=== PATIENT | female | born 1935 | race Caucasian/White ===

== ENCOUNTER 2017-03-05 10:22 | Observation (INO) | payer MEDICARE ==
[2017-03-05] MEDS ORDERED: BENADRYL 50 MG/ML IV ONE (10:26)
[2017-03-05] MEDS ORDERED: Pepcid 20 MG VIAL IV ONE ×2 (10:26→11:04)
[2017-03-05] MEDS ORDERED: Sodium Chloride 0.9% 1000 ML 1,000 ML IV SCH (10:30)
[2017-03-05 10:47] LABS: BASOPHIL % 0.6 % (0.0-0.4); Granulocytes % 64.8 % (36.0-66.0); Lymphocytes % 22.9 % (24.0-44.0); Mean Cell Volume 92.5 fl (78-100); Mean Corpuscular Hemoglobin 30.3 pg (26-32); Mean Platelet Volume 9.9 fl (6-9.5); Monocytes % 8.7 % (0.0-12.0); Platelet Count 180 K/mm3 (150-450); Red Blood Count 5.31 M/mm3 (4.1-5.4); Red Cell Distribution Width 14.2 % (11.5-14.0); White Blood Count 6.2 K/mm3 (4.0-10.5)
--- NOTE | 2017-03-05 10:54 | ERPHSYRPT ---
- History of Present Illness Time Seen by Provider: 03/05/17 10:26 Source: patient Physician History: CC: chest/abd pain Hx: 81 y/o patient of Dr Sarina Oakley. She noted a feeling of pain in lower chest/ upper abdomen around 3AM while resting. She felt her heart racing. It was continuing this AM so she drove herself to the hospital. She had prior appendectomy. She has no hx of heart disease. She does have HTN. No current pain. No N/V/D. She is on a urinary medication for frequency- flomax. Timing/Duration: today Severity: moderate Allergies/Adverse Reactions: amoxicillin [Amoxicillin] Allergy (Verified 02/08/14 09:47) Hx Tetanus, Diphtheria Vaccination/Date Given: No Hx Influenza Vaccination/Date Given: Yes Hx Pneumococcal Vaccination/Date Given: No - Review of Systems Constitutional: Malaise, Weakness, No Fever, No Chills Eyes: No Symptoms Ears, Nose, & Throat: No Symptoms Respiratory: No Cough, No Dyspnea Cardiac: Chest Pain (lower), Palpitations, No Syncope Abdominal/Gastrointestinal: Abdominal Pain (upper), No Nausea, No Vomiting, No Diarrhea Genitourinary Symptoms: No Symptoms Musculoskeletal: Back Pain (chronic unchanged) Skin: No Rash Neurological: No Focal Weakness, No Headache, No Parasthesia All Other Systems: Reviewed and Negative - Past Medical History Pertinent Past Medical History: Yes Cardiac History: Hypertension - Past Surgical History Past Surgical History: Yes Gastrointestinal: Appendectomy Female Surgical History: Hysterectomy Other Surgical History: COLONSCOPY - Social History Smoking Status: Former smoker Exposure to second hand smoke: No Drug Use: none Patient Lives Alone: No - Nursing Vital Signs Nursing Vital Signs: Initial Vital Signs Temperature 97.5 F 03/05/17 10:39 Pulse Rate 77 03/05/17 10:39 Respiratory Rate 16 03/05/17 10:39 Blood Pressure 167/76 03/05/17 10:39 O2 Sat by Pulse Oximetry 95 03/05/17 10:39 Pain Scale Pain Intensity 0 - Physical Exam General Appearance: alert, other (pleasant elderly lady) Eye Exam: PERRL/EOMI Ears, Nose, Throat Exam: normal ENT inspection, moist mucous membranes Neck Exam: normal inspection, non-tender, supple Respiratory Exam: normal breath sounds Cardiovascular Exam: regular rate/rhythm, No murmur Gastrointestinal/Abdomen Exam: soft, tenderness (RUQ and epigastrum with minimal guarding), No distention, No mass Extremity Exam: normal inspection, normal range of motion Neurologic Exam: alert, oriented x 3, cooperative, sensation nml, No motor deficits Skin Exam: warm, dry, No rash - Course Nursing assessment & vital signs reviewed: Yes EKG Interpreted by Me: RATE (78), Sinus Rhythm, NORMAL AXIS, NORMAL INTERVALS ( QTc 447), NORMAL QRS, NORMAL ST-T - Radiology Exams cxr X-ray Interpretation: Reviewed by me (mild CM) - CT Exams abd/pelvis CT Interpretation: Tele-radiologist Report (no acute findings) Ordered Tests: Active Orders 24 hr Category Date Time Status Cath for Specimen-Straight STAT Care 03/05/17 10:27 Active EKG-ER Only STAT Care 03/05/17 10:26 Active EKG-ER Only STAT Care 03/05/17 14:13 Active IV Insertion STAT Care 03/05/17 10:26 Active NPO (ED) STAT Care 03/05/17 10:26 Active ABDOMEN AND PELVIS W/0 CONTRAS [CT] Stat Exams 03/05/17 10:27 Taken CHEST 1 VIEW (PORTABLE) Stat Exams 03/05/17 10:27 Taken CBC W DIFF Stat Lab 03/05/17 10:35 Completed CMP Routine Lab 03/05/17 10:35 Completed LIPASE Routine Lab 03/05/17 10:35 Completed Lactic Acid Stat Lab 03/05/17 10:35 Completed Lactic Acid Stat Lab 03/05/17 12:59 Completed TROPONIN Q3H Lab 03/05/17 10:35 Completed TROPONIN Q3H Lab 03/05/17 13:30 Completed TROPONIN Q3H Lab 03/05/17 16:30 Ordered TROPONIN Q3H Lab 03/05/17 19:30 Ordered TROPONIN Q3H Lab 03/05/17 22:30 Ordered UA W/RFX UR CULTURE Stat Lab 03/05/17 11:00 Completed Medication Summary Generic Name Dose Route Start Last Admin Trade Name Freq PRN Reason Stop Dose Admin Sodium Chloride 1,000 mls @ 50 mls/hr 03/05/17 10:30 03/05/17 11:07 Sodium Chloride 0.9% 1000 Ml IV 04/04/17 10:29 50 mls/hr .Q20H BLANCA Administration Discontinued Medications Generic Name Dose Route Start Last Admin Trade Name Freq PRN Reason Stop Dose Admin Aspirin 324 mg 03/05/17 14:13 03/05/17 14:19 Baby Aspirin 81 Mg Chew PO 03/05/17 14:14 324 mg STAT ONE Administration Diphenhydramine HCl 12.5 mg 03/05/17 10:26 03/05/17 11:07 Benadryl 50 Mg/Ml IV 03/05/17 10:27 12.5 mg STAT ONE Administration Diphenhydramine HCl Confirm 03/05/17 11:04 Benadryl 50 Mg/Ml Administered 03/05/17 11:05 Dose 50 mg .ROUTE .STK-MED ONE Famotidine 20 mg 03/05/17 10:26 03/05/17 11:07 Pepcid 20 Mg Vial IV 03/05/17 10:27 20 mg STAT ONE Administration Famotidine Confirm 03/05/17 11:04 Pepcid 20 Mg Vial Administered 03/05/17 11:05 Dose 20 mg IV .STK-MED ONE Lab/Rad Data: Laboratory Result Diagrams 03/05/17 10:35 03/05/17 10:35 Laboratory Results 03/05/17 03/05/17 03/05/17 Range/Units 13:30 12:59 11:00 WBC (4.0-10.5) K/mm3 RBC (4.1-5.4) M/mm3 Hgb (12.0-16.0) gm/dl Hct (35-47) % MCV (78-100) fl MCH (26-32) pg MCHC (32-36) g/dl RDW (11.5-14.0) % Plt Count (150-450) K/mm3 MPV (6-9.5) fl Gran % (36.0-66.0) % Lymphocytes % (24.0-44.0) % Monocytes % (0.0-12.0) % Eosinophils % (0.00-5.0) % Basophils % (0.0-0.4) % Basophils # (0-0.4) Sodium (136-145) mEq/L Potassium (3.5-5.1) mEq/L Chloride (98-107) mEq/L Carbon Dioxide (21-32) mEq/L Anion Gap (5-15) MEQ/L BUN (9-20) mg/dL Creatinine (0.55-1.30) mg/dl Estimated GFR ML/MIN Glucose (70-110) MG/DL Lactic Acid 0.7 (0.4-2.0) Calcium (8.5-10.1) mg/dL Total Bilirubin (0.2-1.0) mg/dL AST (15-37) U/L ALT (12-78) U/L Alkaline Phosphatase (46-116) U/L Troponin I 0.047 (0.000-0.056) ng/ml Serum Total Protein (6.4-8.2) gm/dL Albumin (3.4-5.0) g/dL Lipase (73-393) U/L Ur Collection Type CATH Urine Color YELLOW (YELLOW) Urine Appearance CLEAR (CLEAR) Urine pH 7.0 (5-6) Ur Specific [place] 1.005 (1.005-1.025) Urine Protein NEGATIVE (Negative) Urine Ketones NEGATIVE (NEGATIVE) Urine Blood NEGATIVE (0-5) Nash/ul Urine Nitrite NEGATIVE (NEGATIVE) Urine Bilirubin NEGATIVE (NEGATIVE) Urine Urobilinogen NORMAL (0-1) mg/dL Ur Leukocyte Esterase NEGATIVE (NEGATIVE) Urine Culture Reflexed NO (NO) Urine Glucose NEGATIVE (NEGATIVE) mg/dL Specimen Received - 11AM 03/05/17 03/05/17 03/05/17 Range/Units 10:35 10:35 10:35 WBC 6.2 (4.0-10.5) K/mm3 RBC 5.31 (4.1-5.4) M/mm3 Hgb 16.1 H (12.0-16.0) gm/dl Hct 49.1 H (35-47) % MCV 92.5 (78-100) fl MCH 30.3 (26-32) pg MCHC 32.8 (32-36) g/dl RDW 14.2 H (11.5-14.0) % Plt Count 180 (150-450) K/mm3 MPV 9.9 H (6-9.5) fl Gran % 64.8 (36.0-66.0) % Lymphocytes % 22.9 L (24.0-44.0) % Monocytes % 8.7 (0.0-12.0) % Eosinophils % 3.0 (0.00-5.0) % Basophils % 0.6 (0.0-0.4) % Basophils # 0.04 (0-0.4) Sodium 141 (136-145) mEq/L Potassium 4.0 (3.5-5.1) mEq/L Chloride 102 (98-107) mEq/L Carbon Dioxide 28.9 (21-32) mEq/L Anion Gap 14.2 (5-15) MEQ/L BUN 18 (9-20) mg/dL Creatinine 1.29 (0.55-1.30) mg/dl Estimated GFR 42 ML/MIN Glucose 114 H (70-110) MG/DL Lactic Acid 2.5 H (0.4-2.0) Calcium 9.7 (8.5-10.1) mg/dL Total Bilirubin 0.60 (0.2-1.0) mg/dL AST 24 (15-37) U/L ALT 22 (12-78) U/L Alkaline Phosphatase 76 (46-116) U/L Troponin I 0.025 (0.000-0.056) ng/ml Serum Total Protein 7.4 (6.4-8.2) gm/dL Albumin 4.5 (3.4-5.0) g/dL Lipase 157 (73-393) U/L Ur Collection Type Urine Color (YELLOW) Urine Appearance (CLEAR) Urine pH (5-6) Ur Specific [place] (1.005-1.025) Urine Protein (Negative) Urine Ketones (NEGATIVE) Urine Blood (0-5) Nash/ul Urine Nitrite (NEGATIVE) Urine Bilirubin (NEGATIVE) Urine Urobilinogen (0-1) mg/dL Ur Leukocyte Esterase (NEGATIVE) Urine Culture Reflexed (NO) Urine Glucose (NEGATIVE) mg/dL Specimen Received - Progress Progress Note: 03/05/17 10:55 She seems to be tender in abd, not chest. Will get CT to rule out AAA or pancreatitis. 03/05/17 13:08 Pt remains pain free here. Labs reassuring. SR on equipment monitor phototypesetting. Will await 3 hour troponin. 03/05/17 14:31 Pt remains pain free. ASA given. Family at bedside and pt and family given test results. Troponin increasing so she should have serial troponin. She has no hx of heart disease. She has never seen a heart doctor in the past. saw Dr Gomes. 03/05/17 15:[address] Sarina Oakley. Will place in chest pain observation for serial troponins to rule out RI. Counseled pt/family regarding: lab results, diagnosis, need for follow-up, rad results - Departure Time of Disposition: 15:05 Departure Disposition: Observation Clinical Impression: Chest pain, Heart palpitations Condition: Fair Critical Care Time: No Referrals: RADHA OAKLEY [Primary Care Provider] -
[2017-03-05] MEDS ORDERED: Sodium Chloride 0.9% 1000 ML 1,000 ML ONE (11:04)
[2017-03-05] MEDS ORDERED: BENADRYL 50 MG/ML ONE (11:04)
[2017-03-05 11:05] LABS: Lactic Acid 2.5 (0.4-2.0)
[2017-03-05 11:27] LABS: ADD URINE CULTURE? NO (NO); Bilirubin NEGATIVE (NEGATIVE); Blood NEGATIVE Ery/ul (0-5); COMPLETE URINE MICROSCOPIC? NO; Collection Type CATH; Glucose NEGATIVE (NEGATIVE); Leukocyte Esterase NEGATIVE (NEGATIVE)
[2017-03-05 11:34] LABS: ALBUMIN 4.5 g/dL (3.4-5.0); ANION GAP 14.2 MEQ/L (5-15); BILIRUBIN,TOTAL 0.6 mg/dL (0.2-1.0); Carbon Dioxide 28.9 mEq/L (21-32); TROPONIN 0.025 ng/ml (0.000-0.056); Total Protein 7.4 gm/dL (6.4-8.2)
[2017-03-05] MEDS ORDERED: BABY ASPIRIN 81 MG CHEW PO ONE (14:13)
[2017-03-05] MEDS ORDERED: TYLENOL 325 MG PO PRN (16:18)
[2017-03-05] MEDS ORDERED: Zofran 4 MG/2 ML VIAL IV PRN (16:18)
[2017-03-05] MEDS ORDERED: MAALOX ES 30 ML UNIT DOSE PO PRN (16:18)
[2017-03-05] MEDS ORDERED: Senokot-S Tablet PO PRN (16:18)
[2017-03-05] MEDS ORDERED: MILK OF MAGNESIA 30 ML PO PRN (16:18)
[2017-03-05] MEDS ORDERED: HYDRODIURIL 25 MG PO SCH ×4 (17:00→22:00)
[2017-03-05] MEDS ORDERED: Flomax 0.4 MG PO SCH ×2 (17:00→22:00)
[2017-03-05] MEDS ORDERED: Protonix 40MG Tablet PO SCH ×2 (17:00→22:00)
[2017-03-05] MEDS ORDERED: DIOVAN PO SCH ×4 (17:00→22:00)
[2017-03-05] MEDS ORDERED: DIOVAN 80 MG ONE ×2 (17:22→23:07)
[2017-03-05] MEDS ORDERED: hydroDIURIL 25 MG ONE ×2 (17:22→23:06)
--- NOTE | 2017-03-05 19:35 | XRAY ---
Indication: Abdomen pain. Multiple contiguous axial images obtained through the abdomen and pelvis without contrast. Comparison: June 03, 2014. Lung bases demonstrates mild bibasilar atelectasis/scarring and right base calcified granuloma. No consolidation or effusion. Heart is not enlarged. Noncontrasted stomach and bowel loops appear nonobstructed. Again descending and sigmoid diverticulosis without diverticulitis. Previous reported appendectomy and hysterectomy. No free fluid/air. Remaining liver, gallbladder, pancreas, spleen, adrenal glands, kidneys, ureters, and bladder appear unremarkable for noncontrast exam. There remains mild aortoiliac calcifications without AAA. Osseous structures intact again with moderate degenerative changes throughout the spine and scoliosis. Stable small fatty umbilical hernia. Impression: 1. Stable colonic diverticulosis and small fatty umbilical hernia. 2. No new or acute intra-abdominal/pelvic abnormalities on this noncontrast exam. Comment: Preliminary interpretation was made by [facility]. No discrepancy. CTDI 19.86
--- NOTE | 2017-03-05 19:37 | XRAY ---
Indication: Chest pressure. Comparison: February 08, 2014. Portable chest again demonstrates minimal bibasilar atelectasis/scarring and right apical calcified granuloma. No focal infiltrate, consolidation, or large effusion. Heart is not enlarged for AP portable technique. Vascularity normal. Bony thorax intact again with mild osteopenia and degenerative changes. Impression: Stable nonacute chest with chronic features.
[2017-03-05] MEDS ORDERED: APRESOLINE 20 MG/ML INJ IV PRN (19:57)
--- NOTE | 2017-03-05 20:03 | PCM.HP ---
History of Present Illness - Chief Complaint Chief Complaint: chest pain Date: 03/05/17 History of Present Illness: is a 81 year old female. with hx of hypertension who at 3am began having chest pressure on the left side and palpitations lasting about 20 mins. It resolved and she was afraid it may have been a heart attack so she drove herself to the ED. She has felt tired since but has otherwise not had any further pain, palitations or nausea. she did take her blood pressure medication last night. - Review of Systems Constitutional: No Fever, No Chills Eyes: No Symptoms Ears, Nose, & Throat: No Symptoms Respiratory: No Cough, No Short Of Breath Cardiac: No Chest Pain, No Edema, No Syncope Abdominal/Gastrointestinal: No Abdominal Pain, No Nausea, No Vomiting, No Diarrhea Genitourinary Symptoms: No Dysuria Musculoskeletal: No Back Pain, No Neck Pain Skin: No Rash Neurological: No Dizziness, No Focal Weakness, No Sensory Changes Psychological: No Symptoms Endocrine: No Symptoms Hematologic/Lymphatic: No Symptoms Immunological/Allergic: No Symptoms Medications & Allergies Home Medications: Home Medication List Naproxen 500 mg [Naprosyn 500 MG] 500 mg PO BID 03/05/17 [History Confirmed 03/05/17] [place]-3 Fatty Acids/Fish Oil [Fish Oil 1,000 mg Capsule] 1 each PO TID 03/05/17 [History Confirmed 03/05/17] Omeprazole 20 MG [Prilosec 20 mg] 20 mg PO DAILY 03/05/17 [History Confirmed ] Simvastatin 10 mg [Zocor 10MG] 10 mg PO DAILY 03/05/17 [History Confirmed ] Tamsulosin HCl 0.4 mg [Flomax 0.4 MG] 0.4 mg PO DAILY 03/05/17 [History Confirmed 03/05/17] Valsartan/Hydrochlorothiazide [Valsartan-Hctz 320-25 mg Tab] 1 tablet PO DAILY 03/05/17 [History Confirmed 03/05/17] Allergies/Adverse Reactions: Allergies Allergy/AdvReac Type Severity Reaction Status Date / Time amoxicillin [Amoxicillin] Allergy Verified 03/05/17 15:23 - Past Medical History Past Medical History: Yes Cardiac History: Hypertension Musculoskelatal History: Other GI Medical History: GERD History: Other Comment: "takes flomax for bladder", sciatica. urinary hesitancy, sees Dr. Allison. da[place] - Past Surgical History Past Surgical History: Yes GI Surgical History: Appendectomy Female Surgical History: Hysterectomy Other Surgical History: COLONSCOPY - Social History Smoking Status: Former smoker Exposure to second hand smoke: No Alcohol: None Drug Use: none - Physical Exam Vital Signs: Vital Signs - 24 hr Temp Pulse Pulse Resp BP Pulse Ox 03/05/17 16:42 98.1 F 59 L 18 216/81 96 03/05/17 15:21 56 L 12 177/73 98 03/05/17 14:03 58 L 18 178/80 99 03/05/17 13:30 68 20 178/80 97 03/05/17 11:15 97.3 F 60 18 146/74 97 03/05/17 10:39 97.5 F 66 77 16 167/76 95 General Appearance: no apparent distress, alert Neurologic Exam: alert, oriented x 3, cooperative, normal mood/affect, nml cerebellar function, nml station & gait, sensation nml, No motor deficits Eye Exam: PERRL/EOMI, eyes nml inspection Ears, Nose, Throat Exam: normal ENT inspection, TMs normal, pharynx normal, moist mucous membranes Neck Exam: normal inspection, non-tender, supple, full range of motion Respiratory Exam: normal breath sounds, lungs clear, No respiratory distress Cardiovascular Exam: regular rate/rhythm, normal heart sounds, normal peripheral pulses Gastrointestinal/Abdomen Exam: soft, normal bowel sounds, No tenderness, No mass Back Exam: normal inspection, normal range of motion, No CVA tenderness, No vertebral tenderness Extremity Exam: normal inspection, normal range of motion, pelvis stable Skin Exam: normal color, warm, dry, No rash Lymphatic Exam: No adenopathy Results - Labs Lab/Micro Results: Lab Results-Last 24 Hours 03/05/17 Range/Units 16:37 Troponin I 0.061 H* (0.000-0.056) ng/ml - Other Procedures and Tests Respiratory Therapy 03/05/17 22:30 EKG ONCE 03/06/17 05:00 EKG ONCE 03/07/17 05:00 EKG ONCE 03/08/17 05:00 EKG ONCE Assessment/Plan (1) Chest pain Current Visit: Yes Status: Acute Assessment & Plan: resolved but troponin seems to be trending up received aspirin in ed EKG is normal and repeat is normal on telemetry with no significant event start metoprolol with the elevated bp continue home losartan/hctz she had a elevation in ED prior to transfer to systolic of 216 it resolved spontaneously to current level of 160 increase statin lovenox for ppx stop naproxen Code(s): R07.9 - CHEST PAIN, UNSPECIFIED (2) Heart palpitations Current Visit: Yes Status: Acute Code(s): R00.2 - PALPITATIONS (3) Hypertension Current Visit: Yes Status: Acute Code(s): I10 - ESSENTIAL (PRIMARY) HYPERTENSION (4) Urinary retention Current Visit: Yes Status: Chronic Assessment & Plan: follows with urology on flomax which has helped it Code(s): R33.9 - RETENTION OF URINE, UNSPECIFIED
[2017-03-05] MEDS ORDERED: Zocor 10MG PO SCH ×2 (22:00)
[2017-03-05] MEDS ORDERED: ENOXAPARIN SODIUM SQ SCH (22:00)
[2017-03-05] MEDS: Lopressor 25MG Tab PO SCH (23:11)
[2017-03-05] MEDS: Pepcid 20 MG VIAL IV SCH (23:11)
[2017-03-06 06:04] LABS: Mean Cell Volume 91.6 fl (78-100); Mean Corpuscular Hemoglobin 29.9 pg (26-32); Mean Platelet Volume 10.1 fl (6-9.5); Platelet Count 245 K/mm3 (150-450); Red Blood Count 4.65 M/mm3 (4.1-5.4); Red Cell Distribution Width 14.2 % (11.5-14.0)
[2017-03-06 06:23] LABS: ANION GAP 12.1 MEQ/L (5-15); Carbon Dioxide 27.9 mEq/L (21-32); Potassium 3.6 mEq/L (3.5-5.1)
[2017-03-06] MEDS: Pepcid 20 MG VIAL IV SCH (08:07)
[2017-03-06] MEDS ORDERED: Lactated Ringers 250 ML IV ONE (09:45)
[2017-03-06] MEDS: FISH OIL 1,000 MG CAPSULE PO SCH ×2 (09:55→13:55)
[2017-03-06] MEDS: Lopressor 25MG Tab PO SCH (09:58)
[2017-03-06] MEDS ORDERED: Ecotrin 325 MG PO SCH (10:00)
[2017-03-06] MEDS ORDERED: HYDROCHLOROTHIAZIDE PO SCH (10:00)
[2017-03-06] MEDS ORDERED: NON-FORMULARY ITEM (Omega-3 Fatty Acids/Fish Oil [Fish Oil 1,000 Mg Capsule] 1 EACH) PO SCH (10:00)
[2017-03-06] MEDS ORDERED: [UNRECOGNIZED DRUG - OTHER] PO SCH (10:00)
[2017-03-06] MEDS ORDERED: VALSARTAN PO SCH (10:00)
--- NOTE | 2017-03-06 14:08 | PCM.DCORD ---
- Discharge Discharge Date: 03/06/17 Disposition: Home, Self-Care Condition: Fair Prescriptions: New Aspirin EC 325 mg [Ecotrin 325 MG] 325 mg PO DAILY #30 tablet.ec Metoprolol Tartrate 25 mg [Lopressor 25MG Tab] 25 mg PO BID #60 tab Continue Tamsulosin HCl 0.4 mg [Flomax 0.4 MG] 0.4 mg PO DAILY Valsartan/Hydrochlorothiazide [Valsartan-Hctz 320-25 mg Tab] 1 tablet PO DAILY Simvastatin 10 mg [Zocor 10MG] 10 mg PO DAILY Omeprazole 20 MG [Prilosec 20 mg] 20 mg PO DAILY [place]-3 Fatty Acids/Fish Oil [Fish Oil 1,000 mg Capsule] 1 each PO TID Discontinued Naproxen 500 mg [Naprosyn 500 MG] 500 mg PO BID Additional Instructions: You will be hearing from our office tomorrow about a referral for follow up with Dr. Gomes as well. If you have not heard from us about an appointment tomorrow please call our office Jessica. Return for any new or worsening chest pain or shortness of breath. Follow up with: RADHA OAKLEY [Primary Care Provider] - Forms: Patient Portal Information
--- NOTE | 2017-03-06 14:26 | PCM.DS ---
Discharge Summary Date of Admission: 03/05/17 16:10 Date of Discharge: 03/06/17 Admitting Physician: RADHA OAKLEY Primary Care Provider: RADHA OAKLEY Allergies Allergies amoxicillin [Amoxicillin] Allergy (Verified 03/05/17 15:23) Hospital Summary - Hospital Course Hospital Course: She was awoken with substernal chest pressure and palpitations radiating to the left and lasting about 20 mins at home at about 0300 the day of presentation. This resolved and she drove her self to ED to have evaluated. She has no previous problems with her heart that she knows of and has been struggling with HTN. her home bp medication was increased about 1 month ago but she just got the higher dose filled about 3 nights ago and has taken 2 nights prior to arrival. She had abdominal tenderness in ED that was significant resulting in ct abd pelvis that was normal. She was given antacidis iv and po. She was given aspirin and she was admitted for chest pain rule out started on ppx lovenox dose. She had normal ekg serially and no recurrence of the chest pain or palpitations. When leaving the ED her bp spiked to 216 systolic but she was asymptomatic and it returned to 160 without intervention. She was continued on her home losartan/hctz and added metoprolol and bp was improved overnight but just prior to her scheduled am dose of metoprolol her bp was taken and sbp was 190/76 and instead of waiting for the metoprolol she was given the prn order for hydralazine and promptly became light headed and flushed and her bp had dropped to 86/41. she was given a 250 mL bolus of LR and her symptoms resolved and bp returned to slightly elevated by 11 am and she was asymptomatic again. The telemetry was unremarkable except some mild asymptomatic bradycardia. Will plan for follow up with cardiology she would like to see Dr. Gomes who took care of her and we will make arrangements for outpatient f/u discussed reasons to return sooner. - Vitals & Intake/Output Vital Signs: Vital Signs Temperature 97.8 F 03/06/17 11:22 Pulse Rate 68 03/06/17 11:22 Respiratory Rate 16 03/06/17 11:22 Blood Pressure 152/65 03/06/17 11:22 O2 Sat by Pulse Oximetry 93 L 03/06/17 11:22 Intake & Output: Intake & Output 03/04/17 03/05/17 03/06/17 03/07/17 11:59 11:59 11:59 11:59 Intake Total 485 240 Balance 485 240 Weight 79.095 kg - Lab Result Diagrams: 03/06/17 05:48 03/06/17 05:48 Lab Results-Last 24 Hrs: Lab Results-Last 24 Hours 03/05/17 03/05/17 03/05/17 Range/Units 16:37 19:42 22:21 WBC (4.0-10.5) K/mm3 RBC (4.1-5.4) M/mm3 Hgb (12.0-16.0) gm/dl Hct (35-47) % MCV (78-100) fl MCH (26-32) pg MCHC (32-36) g/dl RDW (11.5-14.0) % Plt Count (150-450) K/mm3 MPV (6-9.5) fl Sodium (136-145) mEq/L Potassium (3.5-5.1) mEq/L Chloride (98-107) mEq/L Carbon Dioxide (21-32) mEq/L Anion Gap (5-15) MEQ/L BUN (9-20) mg/dL Creatinine (0.55-1.30) mg/dl Estimated GFR ML/MIN Glucose (70-110) MG/DL Calcium (8.5-10.1) mg/dL Troponin I 0.061 H* 0.055 0.076 H* (0.000-0.056) ng/ml Triglycerides (30-200) mg/dL Cholesterol (100-200) mg/dL LDL Cholesterol (5-99) mg/dL HDL Cholesterol (35-60) mg/dL Heart Disease Risk Ratio 03/06/17 03/06/17 03/06/17 Range/Units 05:48 05:48 05:48 WBC 7.0 (4.0-10.5) K/mm3 RBC 4.65 (4.1-5.4) M/mm3 Hgb 13.9 (12.0-16.0) gm/dl Hct 42.6 (35-47) % MCV 91.6 (78-100) fl MCH 29.9 (26-32) pg MCHC 32.6 (32-36) g/dl RDW 14.2 H (11.5-14.0) % Plt Count 245 (150-450) K/mm3 MPV 10.1 H (6-9.5) fl Sodium 137 (136-145) mEq/L Potassium 3.6 (3.5-5.1) mEq/L Chloride 101 (98-107) mEq/L Carbon Dioxide 27.9 (21-32) mEq/L Anion Gap 12.1 (5-15) MEQ/L BUN 16 (9-20) mg/dL Creatinine 1.23 (0.55-1.30) mg/dl Estimated GFR 45 ML/MIN Glucose 96 (70-110) MG/DL Calcium 9.1 (8.5-10.1) mg/dL Troponin I (0.000-0.056) ng/ml Triglycerides 114 (30-200) mg/dL Cholesterol 168 (100-200) mg/dL LDL Cholesterol 87 (5-99) mg/dL HDL Cholesterol 65 H (35-60) mg/dL Heart Disease Risk Ratio 2.6 - Procedures and Test Procedures and Tests throughout Hospitalization: Therapy Orders & Screens 03/05/17 22:30 EKG ONCE Comment: 03/06/17 05:00 EKG ONCE Comment: 03/07/17 05:00 EKG ONCE Comment: 03/08/17 05:00 EKG ONCE Comment: Discharge Exam General Appearance: no apparent distress, alert, obese Neurologic Exam: alert, oriented x 3, cooperative, normal mood/affect, nml cerebellar function, sensation nml, No motor deficits Skin Exam: normal color, warm, dry Eye Exam: PERRL, EOMI, eyes nml inspection Ears, Nose, Throat Exam: normal ENT inspection, pharynx normal, moist mucous membranes Neck Exam: normal inspection, non-tender, supple, full range of motion Respiratory Exam: normal breath sounds, lungs clear, No respiratory distress Cardiovascular Exam: regular rate/rhythm, normal heart sounds Gastrointestinal/Abdomen Exam: soft, No tenderness, No mass Extremity Exam: normal inspection, normal range of motion Back Exam: normal inspection, normal range of motion, No CVA tenderness, No vertebral tenderness Pelvic Exam: deferred Rectal Exam: deferred Final Diagnosis/Problem List - Final Discharge Diagnosis/Problem (1) NSTEMI (non-ST elevated myocardial infarction) Current Visit: Yes Status: Acute Assessment & Plan: very minimal tn elevation may have been secondary to her uncontrolled labile htn she has been asymptomatic since arrival and normal ekg and tele f/u cardiology start metoprolol and aspirin stop naproxen (2) Chest pain Current Visit: Yes Status: Acute (3) Heart palpitations Current Visit: Yes Status: Acute (4) Hypertension Current Visit: Yes Status: Acute (5) Urinary retention Current Visit: Yes Status: Chronic - Discharge Disposition: Home, Self-Care Condition: Fair Prescriptions: New Aspirin EC 325 mg [Ecotrin 325 MG] 325 mg PO DAILY #30 tablet.ec Metoprolol Tartrate 25 mg [Lopressor 25MG Tab] 25 mg PO BID #60 tab Continue Tamsulosin HCl 0.4 mg [Flomax 0.4 MG] 0.4 mg PO DAILY Valsartan/Hydrochlorothiazide [Valsartan-Hctz 320-25 mg Tab] 1 tablet PO DAILY Simvastatin 10 mg [Zocor 10MG] 10 mg PO DAILY Omeprazole 20 MG [Prilosec 20 mg] 20 mg PO DAILY [place]-3 Fatty Acids/Fish Oil [Fish Oil 1,000 mg Capsule] 1 each PO TID Discontinued Naproxen 500 mg [Naprosyn 500 MG] 500 mg PO BID Additional Instructions: You will be hearing from our office tomorrow about a referral for follow up with Dr. Gomes as well. If you have not heard from us about an appointment tomorrow please call our office Tuesday. Return for any new or worsening chest pain or shortness of breath. Follow up with: RADHA OAKLEY [Primary Care Provider] - Forms: Patient Portal Information
[2017-03-06 15:48] VITALS: BP 148/66; PULSE 81; O2SAT 94
[2017-03-06] MEDS ORDERED: ZOCOR 20MG PO SCH (22:00)
== END 2017-03-06 15:45 | disposition home or self-care (01) ==
LOC: ED 10:22 → MED SURG 16:10
PROVIDERS: ADMIT Family Medicine; ATTEND Family Medicine
DX: I21.4 Non-ST elevation (NSTEMI) myocardial infarction (principal); R00.2 Palpitations; I10 Essential (primary) hypertension; R33.9 Retention of urine, unspecified
CPT/HCPCS: 93268 ×2; 96374; 99285; 36000; 96360; 96361; 96375; 93005 ×3; 81002; 36415 ×2; 83721; 83690; 85027; 85025; 80048; 80053; 80061; 84484; 71010; 74176; 83605; P9612; G0378; J0360; J1200; J1650; A9270-GY

== ENCOUNTER 2018-11-27 08:51 | Day surgery (SDC) | payer MEDICARE ==
--- NOTE | 2018-11-27 08:41 | HP ---
DATE OF SURGERY: 11/27/2018 HISTORY OF PRESENT ILLNESS: The patient is an 83 year-old with some persistent mass or adenopathy supraclavicular area the last month or so. She denies any history of lymphoma or adenopathy. 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 She is in need of biopsy. She did have a Cardiolite stress test showing ejection fraction 72% done at [facility] in the past. PAST MEDICAL HISTORY: PAST SURGICAL HISTORY: Cataracts. Appendectomy. Hysterectomy. MEDICATIONS: Aspirin, metoprolol, omeprazole, naproxen, omega-3 fish oil, Simvastatin, Tamsulosin, valsartan/hydrochlorothiazide. ALLERGIES: PENICILLIN. FAMILY HISTORY: Negative in regards to this problem. SOCIAL HISTORY: No alcohol abuse. REVIEW OF SYSTEMS: Fourteen systems reviewed. No chest pain or palpitations other systems negative or noncontributory as above and per preadmission questionnaire. She is a bit overweight. She has anxiety and hypertension. Urinary tract infection in the past. PHYSICAL EXAMINATION: GENERAL: No acute distress. HEENT: Sclerae nonicteric. NECK: Base of her neck prominent soft tissue mass question adenopathy around the clavicle in need of biopsy. CHEST: Equal excursion, nonlabored breathing. CVS: Regular rate and rhythm. ABDOMEN: Soft, nondistended. EXTREMITIES: No edema. NEURO: Alert, moving extremities symmetrically. No gross motor deficits noted. IMPRESSION: Persistent mass or adenopathy right greater than left. I feel she would benefit from excisional biopsy for definitive path for further evaluation. Risks and benefits explained in detail including not limited to bleeding or infection, risk of weakness or numbness possibly intermediate card tender or chronic in nature of the shoulder and extremity, risk of pneumothorax, possibility of missed or nondiagnosis possibly requiring other procedures or biopsies but not limited to. She understands and agrees to the planned procedure. We will proceed with excisional biopsy of right neck mass or node as an outpatient.
[~2018-11-27 08:51] MED LIST: Lactated Ringers 1,000 ML IV ONE; Sensorcaine 0.25% 10 ML ONE
[2018-11-27] MEDS ORDERED: Zemuron 100 MG/10 ML IV ONE (08:52)
[2018-11-27] MEDS ORDERED: CLINDAMYCIN-D5W 600 MG/50 ML*** 600 MG/50 ML BAG IV ONE (08:52)
[2018-11-27] MEDS ORDERED: Quelicin Fliptop 200 MG/10 ML IV ONE (08:52)
[2018-11-27] MEDS: Lactated Ringers 1,000 ML IV SCH ×2 (09:43→09:46)
[2018-11-27] MEDS ORDERED: SUBLIMAZE 100 MCG/2 ML ONE (10:44)
[2018-11-27] MEDS ORDERED: Quelicin Fliptop 200 MG/10 ML ONE (10:44)
[2018-11-27] MEDS ORDERED: DIPRIVAN 200 MG/20 ML IV ONE (10:44)
[2018-11-27] MEDS ORDERED: Zemuron 100 MG/10 ML ONE (10:44)
[2018-11-27] MEDS ORDERED: ROBINUL ONE (11:28)
[2018-11-27] MEDS ORDERED: TORAdol 30 mg Injection ONE (11:28)
[2018-11-27] MEDS ORDERED: Zofran 4 MG/2 ML VIAL ONE (11:28)
[2018-11-27] MEDS ORDERED: Decadron 4 MG INJ ONE (11:28)
[2018-11-27] MEDS ORDERED: BRIDION 200MG/2ML IV ONE (11:53)
[2018-11-27 13:33] VITALS: PULSE 55; O2SAT 97
[2018-11-27 14:13] VITALS: BP 182/85
--- NOTE | 2018-11-27 15:22 | OP ---
SURGERY DATE/TIME: 11/27/2018 1100 PREOPERATIVE DIAGNOSIS: Enlarging right neck mass or density. POSTOPERATIVE DIAGNOSIS: Right neck lipomatous density with some small benign appearing nodes. PROCEDURE: Excisional biopsy right neck lipomatous density along with possible very small benign appearing nodes within the specimen, path pending. SURGEON: Dr. Felix Delgadillo. ANESTHESIA: General. ESTIMATED BLOOD LOSS: Minimal. INDICATIONS: As noted above. Risks and benefits explained in detail and not limited to and consent obtained. The site had been marked in the preoperative holding area. DESCRIPTION OF PROCEDURE AND FINDINGS: Taken to the operating room. General anesthesia introduced. Neck prepped and draped in sterile fashion. After official time out and no disagreement with planned procedure, a transverse incision made. Dissection carried down through the platysma carefully down over what seemed to be lipomatous density slowly and carefully mobilize up off the underlying tissue. It appeared to have some small, couple benign appearing tiny lymph nodes in it. There did not appear to be any other large masses deeper. The neurovascular bundles were carefully protected. A couple tiny little veins were clamped, divided and ligated with Vicryl tie because of oozing. Otherwise the tissue is carefully mobilized upwards and passed off and sent for pathology. Again, there did not appear to be any other palpable abnormal nodes or masses in deeper that could be palpated or visualized. Good hemostasis noted. Wound irrigated out. FLORIN drain placed in the empty space. Platysma closed with 3-0 Vicryl, skin closed with 4-0 Vicryl, Steri-Strips and sterile dressing applied. Patient tolerated the procedure well. There were no immediate complications. FLORIN drain secured with PDS suture and placed to bulb suction. Findings discussed with the family out in the waiting area. We will see her back in the office for path results next week. Specimen was to be sent to evaluate for lymph node although appeared to be benign otherwise the patient had some lipomatous density otherwise.
== END 2018-11-27 14:05 | disposition home or self-care (01) ==
LOC: SDC 08:51
PROVIDERS: ATTEND Surgery
DX: D17.0 Benign lipomatous neoplasm of skin and subcutaneous tissue of head, face and neck (principal); Z79.899 Other long term (current) drug therapy; I10 Essential (primary) hypertension; F41.9 Anxiety disorder, unspecified
CPT/HCPCS: 99100; J0330; J1100; J1885; J2405; J2704; J3010

== ENCOUNTER 2019-10-09 05:11 | Emergency (ER) | payer MEDICARE ==
[2019-10-09] MEDS ORDERED: MORPHINE SULFATE 2 MG INJ IV ONE (05:20)
[2019-10-09] MEDS ORDERED: Zofran 4 MG/2 ML VIAL IV ONE (05:20)
--- NOTE | 2019-10-09 05:20 | ERPHSYRPT ---
- History of Present Illness Historian: patient, EMS Exam Limitations: no limitations Timing/Duration: yesterday, sudden, worse Activities at Onset: other (after BM) Quality: dullness, sharpness Abdominal Pain Onset Location: LLQ Pain Radiation: no radiation Severity of Pain-Max: moderate Severity of Pain-Current: moderate Modifying Factors: Improves With: lying down, movement Associated Symptoms: nausea Previous symptoms: no prior history Hx Tetanus, Diphtheria Vaccination/Date Given: No Hx Influenza Vaccination/Date Given: Yes Hx Pneumococcal Vaccination/Date Given: No <AKHIL DURÁN - Last Filed: 10/09/19 06:35> <BERTA GREEN - Last Filed: 10/09/19 09:13> - History of Present Illness Time Seen by Provider: 10/09/19 05:16 Physician History: 84 years old female presented in the ER with chief complaint of left lower quadrant pain since yesterday afternoon after she had a bowel movement. Patient reports she has a history of constipation and had to take stool softener /laxative. Reports sudden onset of pain moderate intensity sharp in nature, hurts to urinate as well. She lie down and it got better and this morning she woke up again and it took her breath out of her when she got up and walk. Associated with nausea but no vomiting. Denies any fever or chills. (AKHIL DURÁN) Allergies/Adverse Reactions: amoxicillin [Amoxicillin] Allergy (Severe, Verified 10/09/19 05:53) Swelling of Tongue and Lips Penicillins Allergy (Severe, Verified 10/09/19 05:53) Swelling of Tongue and Lips Home Medications: [place]-3 Fatty Acids/Fish Oil [Fish Oil 1,000 mg Capsule] 1 each PO TID 03/05/17 [History] Omeprazole 20 MG [Prilosec 20 mg] 20 mg PO DAILY 03/05/17 [History] Simvastatin 10 mg [Zocor 10MG] 20 mg PO DAILY 03/05/17 [History] Tamsulosin HCl 0.4 mg [Flomax 0.4 MG] 0.4 mg PO DAILY 03/05/17 [History] Valsartan/Hydrochlorothiazide [Valsartan-Hctz 320-25 mg Tab] 1 tablet PO DAILY 03/05/17 [History] Famotidine 20 mg [Pepcid 20 MG] 20 mg PO BID 10/09/19 [History] - Review of Systems Constitutional: No Symptoms Eyes: No Symptoms Ears, Nose, & Throat: No Symptoms Respiratory: No Symptoms Cardiac: No Symptoms Abdominal/Gastrointestinal: Abdominal Pain, Nausea, Constipation Genitourinary Symptoms: Dysuria Musculoskeletal: No Symptoms Skin: No Symptoms Neurological: No Symptoms Psychological: No Symptoms Endocrine: No Symptoms Hematologic/Lymphatic: No Symptoms Immunological/Allergic: No Symptoms <LUIS ARMANDO,AKHIL - Last Filed: 10/09/19 06:35> - Past Medical History Pertinent Past Medical History: Yes Neurological History: No Pertinent History ENT History: No Pertinent History Cardiac History: High Cholesterol, Hypertension Respiratory History: No Pertinent History Endocrine Medical History: No Pertinent History Musculoskeletal History: Other GI Medical History: GERD, Ulcer History: Other Psycho-Social History: No Pertinent History Female Reproductive Disorders: No Pertinent History Other Medical History: "takes flomax for bladder", sciatica. urinary hesitancy, . shingles - Past Surgical History Past Surgical History: Yes Neuro Surgical History: No Pertinent History Cardiac: No Pertinent History Respiratory: No Pertinent History Gastrointestinal: Appendectomy Genitourinary: No Pertinent History Musculoskeletal: No Pertinent History Female Surgical History: Hysterectomy Other Surgical History: COLONSCOPY - Social History Smoking Status: Former smoker Exposure to second hand smoke: No Drug Use: none Patient Lives Alone: No <LUIS ARMANDO,AKHIL Last Filed: 10/09/19 06:35> - Physical Exam General Appearance: no apparent distress, alert Eye Exam: eyes nml inspection Ears, Nose, Throat Exam: normal ENT inspection, pharynx normal Neck Exam: normal inspection, supple, full range of motion Respiratory Exam: normal breath sounds, lungs clear Cardiovascular Exam: regular rate/rhythm, normal heart sounds Gastrointestinal/Abdomen Exam: soft, tenderness (LLQ), guarding, No rebound Back Exam: normal inspection, normal range of motion Extremity Exam: normal inspection, pelvis stable Neurologic Exam: alert, oriented x 3, cooperative Skin Exam: normal color SpO2 Interpretation: normal O2 Delivery: Room Air <LUIS ARMANDOAKHIL - Last Filed: 10/09/19 06:35> - Nursing Vital Signs Nursing Vital Signs: Initial Vital Signs Temperature 97.8 F 10/09/19 05:41 Pulse Rate 69 10/09/19 05:41 Respiratory Rate 22 10/09/19 05:41 Blood Pressure 160/47 10/09/19 05:41 O2 Sat by Pulse Oximetry 98 10/09/19 05:41 Pain Scale Pain Intensity 2 Ordered Tests: Active Orders 24 hr Category Date Time Status IV Insertion STAT Care 10/09/19 05:20 Active Isolation, Initiate & Maintain Q4H Care 10/09/19 05:53 Active NPO (ED) STAT Care 10/09/19 05:20 Active ABDOMEN AND PELVIS W/0 CONTRAS [CT] Stat Exams 10/09/19 05:20 Completed CBC W DIFF Stat Lab 10/09/19 06:17 Completed CMP Stat Lab 10/09/19 06:17 Completed CULTURE,URINE Stat Lab 10/09/19 06:00 Received LIPASE Stat Lab 10/09/19 06:17 Completed UA W/RFX UR CULTURE Stat Lab 10/09/19 06:00 Completed Medication Summary Discontinued Medications Generic Name Dose Route Start Last Admin Trade Name Mina PRN Reason Stop Dose Admin Sodium Chloride 500 mls @ 499 mls/hr 10/09/19 05:20 10/09/19 07:10 Sodium Chloride 0.9% 1000 Ml IV 10/09/19 06:20 Infused .Q1H1M STA Infusion Sodium Chloride Confirm 10/09/19 06:07 Sodium Chloride 0.9% 1000 Ml Administered 10/09/19 06:08 Dose 1,000 mls @ ud .ROUTE .STK-MED ONE Sodium Chloride Confirm 10/09/19 07:12 Sodium Chloride 0.9% 1000 Ml Administered 10/09/19 07:13 Dose 1,000 mls @ ud .ROUTE .STK-MED ONE Levofloxacin/Dextrose 500 mg in 100 mls @ 100 mls/hr 10/09/19 07:41 10/09/19 07:43 Levofloxacin 500mg/100ml D5w IV 10/09/19 08:40 100 mls/hr STAT STA 100 mls/hr Administration Levofloxacin/Dextrose Confirm 10/09/19 07:42 Levofloxacin 500mg/100ml D5w Administered 10/09/19 07:43 Dose 500 mg in 100 mls @ ud IV .STK-MED ONE Morphine Sulfate 2 mg 10/09/19 05:20 10/09/19 06:09 Morphine Sulfate 2 Mg Inj IV 10/09/19 05:21 2 mg STAT ONE Administration Morphine Sulfate Confirm 10/09/19 06:07 Morphine Sulfate 2 Mg Inj Administered 10/09/19 06:08 Dose 2 mg .ROUTE .STK-MED ONE Ondansetron HCl 4 mg 10/09/19 05:20 10/09/19 06:09 Zofran 4 Mg/2 Ml Vial IV 10/09/19 05:21 4 mg STAT ONE Administration Ondansetron HCl Confirm 10/09/19 06:07 Zofran 4 Mg/2 Ml Vial Administered 10/09/19 06:08 Dose 4 mg .ROUTE .STK-MED ONE Lab/Rad Data: Laboratory Result Diagrams 10/09/19 06:17 10/09/19 06:17 Laboratory Results 10/09/19 10/09/19 10/09/19 Range/Units 06:17 06:17 06:00 WBC 11.7 H (4.0-10.5) K/mm3 RBC 4.96 (4.1-5.4) M/mm3 Hgb 15.2 (12.0-16.0) gm/dl Hct 47.3 H (35-47) % MCV 95.4 (78-100) fl MCH 30.6 (26-32) pg MCHC 32.1 (32-36) g/dl RDW 13.3 (11.5-14.0) % Plt Count 182 (150-450) K/mm3 MPV 10.2 (7.5-11.0) fl Gran % 76.0 H (36.0-66.0) % Eos # (Auto) 0.12 (0-0.5) Absolute Lymphs (auto) 1.34 (1.0-4.6) Absolute Monos (auto) 1.31 H (0.0-1.3) Lymphocytes % 11.5 L (24.0-44.0) % Monocytes % 11.2 (0.0-12.0) % Eosinophils % 1.0 (0.00-5.0) % Basophils % 0.3 (0.0-0.4) % Absolute Granulocytes 8.85 H (1.4-6.9) Basophils # 0.03 (0-0.4) Sodium 136 L (137-145) mmol/L Potassium 4.4 (3.5-5.1) mmol/L Chloride 99 (98-107) mmol/L Carbon Dioxide 29 (22-30) mmol/L Anion Gap 12.6 (5-15) MEQ/L BUN 25 H (7-17) mg/dL Creatinine 1.87 H (0.52-1.04) mg/dL Estimated GFR 27.3 ML/MIN Glucose 132 H (74-106) mg/dL Calcium 9.4 (8.4-10.2) mg/dL Total Bilirubin 0.80 (0.2-1.3) mg/dL AST 22 (14-36) U/L ALT 18 (0-35) U/L Alkaline Phosphatase 77 (38-126) U/L Serum Total Protein 7.3 (6.3-8.2) g/dL Albumin 4.1 (3.5-5.0) g/dL Lipase 99 (23-300) U/L Urine Color YELLOW (YELLOW) Urine Appearance CLOUDY (CLEAR) Urine pH 6.0 (5-6) Ur Specific [place] 1.010 (1.005-1.025) Urine Protein NEGATIVE (Negative) Urine Ketones NEGATIVE (NEGATIVE) Urine Blood SMALL (0-5) Nash/ul Urine Nitrite NEGATIVE (NEGATIVE) Urine Bilirubin NEGATIVE (NEGATIVE) Urine Urobilinogen NEGATIVE (0-1) mg/dL Ur Leukocyte Esterase LARGE (NEGATIVE) Urine WBC (Auto) 26-50 (0-5) /HPF Urine RBC (Auto) 6-10 (0-2) /HPF U Hyaline Cast (Auto) 6-10 (0-2) /LPF U Epithel Cells (Auto) MANY (FEW) /HPF Urine Bacteria (Auto) MODERATE (NEGATIVE) /HPF U Non-Squamous Epi Cells RARE (FEW) /HPF Unidentified Crystals 25-50 (NEGATIVE) /HPF Other Casts (Auto) 5-10 (NEGATIVE) /LPF Urine Mucus (Auto) SLIGHT (NEGATIVE) /HPF Urine Culture Reflexed YES (NO) Urine Glucose NEGATIVE (NEGATIVE) mg/dL <AKHIL DURÁN - Last Filed: 10/09/19 06:35> - Progress Progress: improved Counseled pt/family regarding: lab results, diagnosis, need for follow-up, rad results <BERTA GREEN - Last Filed: 10/09/19 09:13> - Progress Progress Note: 10/09/19 06:55 Work-up is pending, care transferred to Dr. Green at end of my shift. (AKHIL DURÁN) 10/09/19 09:09 CAT scan of the abdomen and pelvis reveals mild sigmoid colon diverticulitis. There is no abscess or perforation or free air present. Medical decision making: This patient does not have a acute surgical abdomen. However, she does have mild diverticulitis that can be treated nonoperatively initially. She also has a urinary tract infection. We will send the patient home with a prescription for Cipro, Flagyl and [place]. She is to follow-up with her primary care physician for further management. (BERTA GREEN) <AKHIL DURÁN - Last Filed: 10/09/19 06:35> - Departure Departure Disposition: Home Critical Care Time: No <BERTA GREEN - Last Filed: 10/09/19 09:13> - Departure Clinical Impression: Diverticulitis large intestine, Urinary tract infection Condition: Stable Referrals: ADITYA RIVERS [Primary Care Provider] - Additional Instructions: Drink plenty of fluids. Do not advance diet until tolerating the liquids well and the pain is resolved in the left lower quadrant of your abdomen. Return to the emergency department if your symptoms worsen. Follow-up with your primary care physician for persistent symptoms that have not been worsening. Take your medication as prescribed Prescriptions: Hydrocodone/APAP 5-325 Tab^^^ [[place] 5-325 Tablet^^^] 1 tab PO Q8H PRN PRN #9 tablet MDD 3 PRN Reason: Pain Ciprofloxacin [Cipro 500 MG] 500 mg PO BID #14 tablet Metronidazole 500 mg [Flagyl 500 MG] 500 mg PO TID #21 tablet
[2019-10-09 06:06] LABS: Appearance CLOUDY (CLEAR); Bacteria MODERATE /HPF (NEGATIVE); Bilirubin NEGATIVE (NEGATIVE); Blood SMALL Ery/ul (0-5); Crystals Unidentified 25-50 /HPF (NEGATIVE); Epithelial Cells MANY /HPF (FEW); Glucose NEGATIVE (NEGATIVE); Ketones NEGATIVE (NEGATIVE); Leukocyte Esterase LARGE (NEGATIVE); Mucus SLIGHT /HPF (NEGATIVE); Nitrite NEGATIVE (NEGATIVE); Non-Squamous Epithelial Cells RARE /HPF (FEW); Protein,Urine Dip NEGATIVE (Negative); Urobilinogen NEGATIVE mg/dL (0-1); WBC 26-50 /HPF (0-5)
[2019-10-09] MEDS ORDERED: Zofran 4 MG/2 ML VIAL ONE (06:07)
[2019-10-09] MEDS ORDERED: Sodium Chloride 0.9% 1000 ML 0 ML ONE (06:07)
[2019-10-09] MEDS ORDERED: MORPHINE SULFATE 2 MG INJ ONE (06:07)
[2019-10-09 06:27] LABS: Absolute Neutrophil Ct (ANC) 8.85 (1.4-6.9); BASOPHIL % 0.3 % (0.0-0.4); Basophil (Absolute #) 0.03 (0-0.4); Eosinophil (Absolute #) 0.12 (0-0.5); Hematocrit 47.3 % (35-47); Hemoglobin 15.2 gm/dl (12.0-16.0); Lymphocyte (Absolute #) 1.34 (1.0-4.6); Lymphocytes % 11.5 % (24.0-44.0); Mean Cell Volume 95.4 fl (78-100); Mean Corpuscular Hemoglobin 30.6 pg (26-32); Mean Corpuscular Hgb Concent. 32.1 g/dl (32-36); Mean Platelet Volume 10.2 fl (7.5-11.0); Monocyte (Absolute #) 1.31 (0.0-1.3); Monocytes % 11.2 % (0.0-12.0); Platelet Count 182 K/mm3 (150-450); Red Blood Count 4.96 M/mm3 (4.1-5.4); Red Cell Distribution Width 13.3 % (11.5-14.0); White Blood Count 11.7 K/mm3 (4.0-10.5)
[2019-10-09 06:38] LABS: ALBUMIN 4.1 g/dL (3.5-5.0); ANION GAP 12.6 MEQ/L (5-15); BILIRUBIN,TOTAL 0.8 mg/dL (0.2-1.3); Calcium 9.4 mg/dL (8.4-10.2); Creatinine 1 1.87 mg/dL (0.52-1.04); Potassium 4.4 mmol/L (3.5-5.1); Total Protein 7.3 g/dL (6.3-8.2)
[2019-10-09] MEDS ORDERED: Sodium Chloride 0.9% 1000 ML 1,000 ML ONE (07:12)
[2019-10-09] MEDS ORDERED: Levofloxacin 500MG/100ML D5W 500 MG/100 ML BAG IV STA (07:41)
[2019-10-09] MEDS ORDERED: Levofloxacin 500MG/100ML D5W 500 MG/100 ML BAG IV ONE (07:42)
[2019-10-09 08:29] VITALS: O2SAT 98
--- NOTE | 2019-10-09 08:45 | XRAY ---
Indication: Left lower quadrant pain and nausea. Multiple contiguous axial images obtained through the abdomen and pelvis without contrast as ordered. Comparison: March 05, 2017. Lung bases again demonstrates bibasilar dependent atelectasis and tiny right lower lobe calcified granuloma. No infiltrate or effusion. Heart is not enlarged. Noncontrasted stomach and bowel loops appear nonobstructed again with scattered colonic diverticulosis, greatest in the descending and sigmoid colon. Proximal sigmoid colon demonstrates new mild bowel wall thickening/stranding favoring diverticulitis. No free fluid/air. Again previous reported appendectomy and hysterectomy. Stable splenic calcified granulomas. Remaining liver, gallbladder, pancreas, spleen, adrenal glands, kidneys, ureters, and bladder appear unremarkable for noncontrast exam. There remains mild/moderate aortoiliac calcifications without AAA. 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 Impression: 1. Again scattered colonic diverticulosis with new mild proximal sigmoid diverticulitis. No complications. 2. 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
[2019-10-09 09:15] VITALS: BP 143/59; PULSE 69
== END 2019-10-09 09:21 | disposition home or self-care (01) ==
LOC: ED 05:11
DX: K57.32 Diverticulitis of large intestine without perforation or abscess without bleeding (principal); N39.0 Urinary tract infection, site not specified; Z79.899 Other long term (current) drug therapy
CPT/HCPCS: 36000; 36415; 74176; 80053; 81001; 83690; 85025; 87086; 96360; 96365; 96374; 96375; 99284; J1956; J2270; J2405

== ENCOUNTER 2020-05-05 14:28 | Emergency (ER) | payer MEDICARE ==
[2020-05-05] MEDS ORDERED: Sodium Chloride 0.9% 1000 ML 1,000 ML IV SCH (14:45)
[2020-05-05] MEDS ORDERED: MORPHINE SULFATE 2 MG INJ IV ONE (14:45)
--- NOTE | 2020-05-05 14:52 | ERPHSYRPT ---
- History of Present Illness Time Seen by Provider: 05/05/20 14:55 Historian: patient Physician History: Patient is a 84-year-old female presents with right upper quadrant pain that started this morning after eating breakfast. Patient had a breakfast this morning and developed right upper quadrant pain that was mild. Patient felt the pain would eventually resolve however got worse. At approximate 1130 the pain was significant. Patient called her primary care doctor who advised her to come to our ED for an evaluation. Pain described as an ache that is localized. No radiation. Pain rated 6 out of 10. No trauma or fevers. No nausea vomiting or diaphoresis. Patient voices no other complaints or concerns at this time. Timing/Duration: today Activities at Onset: none Quality: aching Abdominal Pain Onset Location: RUQ Pain Radiation: no radiation Severity of Pain-Max: moderate Severity of Pain-Current: mild Modifying Factors: Improves With: other (Pain occurred after eating her breakfast.). Worsens With: vomiting, walking Associated Symptoms: No chest pain, No diarrhea, No fatigue, No headache, No heartburn, No loss of appetite, No neck pain, No rash, No shortness of breath Previous symptoms: no prior history Allergies/Adverse Reactions: amoxicillin [Amoxicillin] Allergy (Severe, Verified 05/05/20 14:56) Swelling of Tongue and Lips Penicillins Allergy (Severe, Verified 05/05/20 14:56) Swelling of Tongue and Lips Home Medications: [place]-3 Fatty Acids/Fish Oil [Fish Oil 1,000 mg Capsule] 1 each PO TID 03/05/17 [History] Omeprazole 20 MG [Prilosec 20 mg] 20 mg PO DAILY 03/05/17 [History] Simvastatin 10 mg [Zocor 10MG] 20 mg PO DAILY 03/05/17 [History] Tamsulosin HCl 0.4 mg [Flomax 0.4 MG] 0.4 mg PO DAILY 03/05/17 [History] Valsartan/Hydrochlorothiazide [Valsartan-Hctz 320-25 mg Tab] 1 tablet PO DAILY 03/05/17 [History] Famotidine 20 mg [Pepcid 20 MG] 20 mg PO BID 10/09/19 [History] Hx Tetanus, Diphtheria Vaccination/Date Given: No Hx Influenza Vaccination/Date Given: Yes Hx Pneumococcal Vaccination/Date Given: No - Review of Systems Constitutional: No Symptoms, No Fever, No Chills Eyes: No Symptoms Ears, Nose, & Throat: No Symptoms Respiratory: No Symptoms, No Cough, No Dyspnea Cardiac: No Symptoms, No Chest Pain, No Edema, No Syncope Abdominal/Gastrointestinal: No Symptoms, No Abdominal Pain, No Nausea, No Vomiting, No Diarrhea Genitourinary Symptoms: No Symptoms, No Dysuria Musculoskeletal: No Symptoms, No Back Pain, No Neck Pain Skin: No Symptoms, No Rash Neurological: No Symptoms, No Dizziness, No Focal Weakness, No Sensory Changes Psychological: No Symptoms Endocrine: No Symptoms Hematologic/Lymphatic: No Symptoms All Other Systems: Reviewed and Negative - Past Medical History Pertinent Past Medical History: Yes Neurological History: No Pertinent History ENT History: No Pertinent History Cardiac History: High Cholesterol, Hypertension Respiratory History: No Pertinent History Endocrine Medical History: No Pertinent History Musculoskeletal History: Other GI Medical History: GERD, Ulcer History: Other Psycho-Social History: No Pertinent History Female Reproductive Disorders: No Pertinent History Other Medical History: "takes flomax for bladder", sciatica. urinary hesitancy,. shingles - Past Surgical History Past Surgical History: Yes Neuro Surgical History: No Pertinent History Cardiac: No Pertinent History Respiratory: No Pertinent History Gastrointestinal: Appendectomy Genitourinary: No Pertinent History Musculoskeletal: No Pertinent History Female Surgical History: Hysterectomy Other Surgical History: COLONSCOPY - Social History Smoking Status: Former smoker Exposure to second hand smoke: No Drug Use: none Patient Lives Alone: No - Nursing Vital Signs Nursing Vital Signs: Initial Vital Signs Temperature 98.4 F 05/05/20 14:50 Pulse Rate 53 L 05/05/20 14:50 Respiratory Rate 19 05/05/20 14:50 Blood Pressure 210/81 05/05/20 14:50 O2 Sat by Pulse Oximetry 99 05/05/20 14:50 Pain Scale Pain Intensity 0 - Physical Exam General Appearance: no apparent distress, alert Eye Exam: PERRL/EOMI, eyes nml inspection Ears, Nose, Throat Exam: normal ENT inspection, pharynx normal, moist mucous membranes Neck Exam: normal inspection, non-tender, supple, full range of motion Respiratory Exam: normal breath sounds, lungs clear, No respiratory distress Cardiovascular Exam: regular rate/rhythm, normal heart sounds Gastrointestinal/Abdomen Exam: soft, other (Tenderness palpation right upper quadrant.), No tenderness, No mass Back Exam: normal inspection, normal range of motion, No CVA tenderness, No vertebral tenderness Extremity Exam: normal inspection, normal range of motion, pelvis stable Neurologic Exam: alert, oriented x 3, cooperative, normal mood/affect, nml cerebellar function, sensation nml, No motor deficits Skin Exam: normal color, warm, dry SpO2 Interpretation: normal O2 Delivery: Room Air - Course Nursing assessment & vital signs reviewed: Yes - CT Exams Abdomen/Pelvis CT Interpretation: Tele-radiologist Report (New moderately distended gallbladder without stones, mild diffuse fecal stasis and markedly distended urinary bladder. Versus. Remaining abdominal pelvis negative.) Ordered Tests: Active Orders 24 hr Category Date Time Status IV Insertion STAT Care 05/05/20 14:45 Active ABDOMEN AND PELVIS W/0 CONTRAS [CT] Stat Exams 05/05/20 18:30 Taken GALLBLADDER [US] Stat Exams 05/05/20 15:31 Completed CBC W DIFF Stat Lab 05/05/20 15:10 Completed CMP Stat Lab 05/05/20 15:10 Completed LIPASE Stat Lab 05/05/20 15:10 Completed TROPONIN Q3H Lab 05/05/20 13:05 Completed TROPONIN Q3H Lab 05/05/20 17:45 Completed TROPONIN Q3H Lab 05/06/20 02:45 Ordered UA W/RFX UR CULTURE Stat Lab 05/05/20 14:57 Completed Medication Summary Generic Name Dose Route Start Last Admin Trade Name Freq PRN Reason Stop Dose Admin Sodium Chloride 1,000 mls @ 100 mls/hr 05/05/20 14:45 05/05/20 15:18 Sodium Chloride 0.9% 1000 Ml IV 06/04/20 14:44 100 mls/hr .Q10H BLANCA Administration Discontinued Medications Generic Name Dose Route Start Last Admin Trade Name Freq PRN Reason Stop Dose Admin Metoprolol Tartrate 25 mg 05/05/20 19:56 05/05/20 20:02 Lopressor 25mg Tab PO 05/05/20 19:57 25 mg STAT ONE Administration Metoprolol Tartrate Confirm 05/05/20 20:01 Lopressor 25mg Tab Administered 05/05/20 20:02 Dose 25 mg .ROUTE .STK-MED ONE Morphine Sulfate 2 mg 05/05/20 14:45 05/05/20 15:12 Morphine Sulfate 2 Mg Inj IV 05/05/20 14:46 2 mg STAT ONE Administration Morphine Sulfate Confirm 05/05/20 15:01 Morphine Sulfate 2 Mg Inj Administered 05/05/20 15:02 Dose 2 mg .ROUTE .STK-MED ONE Lab/Rad Data: Laboratory Result Diagrams 05/05/20 15:10 05/05/20 15:10 Laboratory Results 05/05/20 05/05/20 05/05/20 Range/Units 17:45 15:10 15:10 WBC 7.2 (4.0-10.5) K/mm3 RBC 4.62 (4.1-5.4) M/mm3 Hgb 14.3 (12.0-16.0) gm/dl Hct 43.1 (35-47) % MCV 93.3 (78-100) fl MCH 31.0 (26-32) pg MCHC 33.2 (32-36) g/dl RDW 12.5 (11.5-14.0) % Plt Count 268 (150-450) K/mm3 MPV 9.7 (7.5-11.0) fl Gran % 61.0 (36.0-66.0) % Eos # (Auto) 0.22 (0-0.5) Absolute Lymphs (auto) 1.82 (1.0-4.6) Absolute Monos (auto) 0.72 (0.0-1.3) Lymphocytes % 25.2 (24.0-44.0) % Monocytes % 10.0 (0.0-12.0) % Eosinophils % 3.0 (0.00-5.0) % Basophils % 0.8 (0.0-0.4) % Absolute Granulocytes 4.41 (1.4-6.9) Basophils # 0.06 (0-0.4) Sodium 129 L (137-145) mmol/L Potassium 4.5 (3.5-5.1) mmol/L Chloride 92 L (98-107) mmol/L Carbon Dioxide 30 (22-30) mmol/L Anion Gap 11.4 (5-15) MEQ/L BUN 20 H (7-17) mg/dL Creatinine 1.26 H (0.52-1.04) mg/dL Estimated GFR 43.1 ML/MIN Glucose 101 (74-106) mg/dL Calcium 9.8 (8.4-10.2) mg/dL Total Bilirubin 0.80 (0.2-1.3) mg/dL AST 39 H (14-36) U/L ALT 23 (0-35) U/L Alkaline Phosphatase 82 (38-126) U/L Troponin I < 0.012 (0.000-0.034) ng/mL Serum Total Protein 7.9 (6.3-8.2) g/dL Albumin 4.5 (3.5-5.0) g/dL Lipase 207 (23-300) U/L Urine Color (YELLOW) Urine Appearance (CLEAR) Urine pH (5-6) Ur Specific [place] (1.005-1.025) Urine Protein (Negative) Urine Ketones (NEGATIVE) Urine Blood (0-5) Nash/ul Urine Nitrite (NEGATIVE) Urine Bilirubin (NEGATIVE) Urine Urobilinogen (0-1) mg/dL Ur Leukocyte Esterase (NEGATIVE) Urine WBC (Auto) (0-5) /HPF Urine RBC (Auto) (0-2) /HPF U Hyaline Cast (Auto) (0-2) /LPF U Epithel Cells (Auto) (FEW) /HPF Urine Bacteria (Auto) (NEGATIVE) /HPF Urine Mucus (Auto) (NEGATIVE) /HPF Urine Culture Reflexed (NO) Urine Glucose (NEGATIVE) mg/dL 05/05/20 05/05/20 Range/Units 14:57 13:05 WBC (4.0-10.5) K/mm3 RBC (4.1-5.4) M/mm3 Hgb (12.0-16.0) gm/dl Hct (35-47) % MCV (78-100) fl MCH (26-32) pg MCHC (32-36) g/dl RDW (11.5-14.0) % Plt Count (150-450) K/mm3 MPV (7.5-11.0) fl Gran % (36.0-66.0) % Eos # (Auto) (0-0.5) Absolute Lymphs (auto) (1.0-4.6) Absolute Monos (auto) (0.0-1.3) Lymphocytes % (24.0-44.0) % Monocytes % (0.0-12.0) % Eosinophils % (0.00-5.0) % Basophils % (0.0-0.4) % Absolute Granulocytes (1.4-6.9) Basophils # (0-0.4) Sodium (137-145) mmol/L Potassium (3.5-5.1) mmol/L Chloride (98-107) mmol/L Carbon Dioxide (22-30) mmol/L Anion Gap (5-15) MEQ/L BUN (7-17) mg/dL Creatinine (0.52-1.04) mg/dL Estimated GFR ML/MIN Glucose (74-106) mg/dL Calcium (8.4-10.2) mg/dL Total Bilirubin (0.2-1.3) mg/dL AST (14-36) U/L ALT (0-35) U/L Alkaline Phosphatase (38-126) U/L Troponin I < 0.012 (0.000-0.034) ng/mL Serum Total Protein (6.3-8.2) g/dL Albumin (3.5-5.0) g/dL Lipase (23-300) U/L Urine Color YELLOW (YELLOW) Urine Appearance SLIGHTLY CLOUDY (CLEAR) Urine pH 6.0 (5-6) Ur Specific [place] 1.008 (1.005-1.025) Urine Protein NEGATIVE (Negative) Urine Ketones NEGATIVE (NEGATIVE) Urine Blood NEGATIVE (0-5) Nash/ul Urine Nitrite NEGATIVE (NEGATIVE) Urine Bilirubin NEGATIVE (NEGATIVE) Urine Urobilinogen NEGATIVE (0-1) mg/dL Ur Leukocyte Esterase TRACE (NEGATIVE) Urine WBC (Auto) 3-5 (0-5) /HPF Urine RBC (Auto) NONE (0-2) /HPF U Hyaline Cast (Auto) 0-2 (0-2) /LPF U Epithel Cells (Auto) RARE (FEW) /HPF Urine Bacteria (Auto) NONE (NEGATIVE) /HPF Urine Mucus (Auto) SLIGHT (NEGATIVE) /HPF Urine Culture Reflexed NO (NO) Urine Glucose NEGATIVE (NEGATIVE) mg/dL - Progress Progress: improved Progress Note: 05/05/20 21:41 Patient reassessed. Pain improved. Gallbladder distended. Case discussed with general surgeon who feels patient will require a HIDA scan. We do not have HIDA scan immediately available at our facility. Patient did not want to be discharged. Patient wants to be admitted for definitive care. We contacted [facility]. Case discussed with Dr. Cottrell, hospitalist who accepts admission to observation. We are currently awaiting a bed assignment. Patient agrees to transfer to [facility] for further evaluation and treatment. Counseled pt/family regarding: lab results, diagnosis, need for follow-up, rad results - Departure Departure Disposition: Home Clinical Impression: Biliary colic, Gall bladder disease, Hyponatremia Condition: Stable Critical Care Time: No Referrals: ADITYA RIVERS [Primary Care Provider] -
[2020-05-05] MEDS ORDERED: MORPHINE SULFATE 2 MG INJ ONE (15:01)
[2020-05-05] MEDS ORDERED: Sodium Chloride 0.9% 1000 ML 0 ML ONE (15:02)
[2020-05-05] MEDS ORDERED: Sodium Chloride 0.9% 1000 ML 1,000 ML ONE (15:16)
[2020-05-05 15:18] LABS: Absolute Neutrophil Ct (ANC) 4.41 (1.4-6.9); BASOPHIL % 0.8 % (0.0-0.4); Basophil (Absolute #) 0.06 (0-0.4); Eosinophil (Absolute #) 0.22 (0-0.5); Hematocrit 43.1 % (35-47); Hemoglobin 14.3 gm/dl (12.0-16.0); Lymphocyte (Absolute #) 1.82 (1.0-4.6); Lymphocytes % 25.2 % (24.0-44.0); Mean Cell Volume 93.3 fl (78-100); Mean Corpuscular Hgb Concent. 33.2 g/dl (32-36); Mean Platelet Volume 9.7 fl (7.5-11.0); Monocyte (Absolute #) 0.72 (0.0-1.3); Platelet Count 268 K/mm3 (150-450); Red Blood Count 4.62 M/mm3 (4.1-5.4); Red Cell Distribution Width 12.5 % (11.5-14.0); White Blood Count 7.2 K/mm3 (4.0-10.5)
[2020-05-05 15:32] LABS: Appearance SLIGHTLY CLOUDY (CLEAR); Bilirubin NEGATIVE (NEGATIVE); Blood NEGATIVE Ery/ul (0-5); Epithelial Cells RARE /HPF (FEW); Glucose NEGATIVE (NEGATIVE); Hyaline Casts 0-2 /LPF (0-2); Ketones NEGATIVE (NEGATIVE); Leukocyte Esterase TRACE (NEGATIVE); Mucus SLIGHT /HPF (NEGATIVE); Nitrite NEGATIVE (NEGATIVE); Protein,Urine Dip NEGATIVE (Negative); Specific Gravity 1.008 (1.005-1.025); Urobilinogen NEGATIVE mg/dL (0-1)
[2020-05-05 15:35] LABS: ALBUMIN 4.5 g/dL (3.5-5.0); ANION GAP 11.4 MEQ/L (5-15); BILIRUBIN,TOTAL 0.8 mg/dL (0.2-1.3); Calcium 9.8 mg/dL (8.4-10.2); Creatinine 1 1.26 mg/dL (0.52-1.04); EST GLOMERULAR FILTRATION RATE 43.1 ML/MIN; Potassium 4.5 mmol/L (3.5-5.1); Total Protein 7.9 g/dL (6.3-8.2)
--- NOTE | 2020-05-05 16:32 | XRAY ---
Indication: Right upper quadrant pain. Two-dimensional gallbladder sonogram performed. Comparison: None Gallbladder moderately distended without gallstones, wall thickening, or pericholecystic fluid. Common bile duct measures 7.7 mm. No intrahepatic biliary distention. Remaining visualized portions of the liver, pancreas, and right kidney appear sonographically unremarkable. Right kidney measures 10.8 cm in length. No ascites. Impression: Distended gallbladder without cholelithiasis/cholecystitis. Nuclear medicine HIDA scan may yield further information.
[2020-05-05] MEDS ORDERED: Lopressor 25MG Tab PO ONE (19:56)
[2020-05-05] MEDS ORDERED: Lopressor 25MG Tab ONE (20:01)
[2020-05-05 21:58] VITALS: BP 180/68; PULSE 49; O2SAT 98
--- NOTE | 2020-05-06 08:58 | XRAY ---
Indication: Right lower quadrant pain. History diverticulitis. Multiple contiguous axial images obtained through the abdomen and pelvis without contrast. Comparison: October 09, 2019. Lung bases again demonstrates bibasilar dependent atelectasis and tiny right lower lobe calcified granuloma. No infiltrate or effusion. Heart is not enlarged. Noncontrasted stomach and bowel loops remain nonobstructed. There is now mild diffuse scattered colonic fecal debris throughout. Stable diffuse scattered colonic diverticulosis without diverticulitis. Again previous reported appendectomy and hysterectomy. No free fluid/air. Gallbladder moderately distended without gallstones. Urinary bladder is now moderately distended concerning for outlet obstruction versus neurogenic bladder. Stable splenic calcified granulomas. Remaining liver, gallbladder, pancreas, spleen, adrenal glands, kidneys, ureters, and bladder are unremarkable for noncontrast exam. Stable moderate scattered aortoiliac calcifications without AAA. Osseous structures intact again with osteopenia, mild/moderate degenerative changes throughout the thoracolumbar spine, and dextrorotoscoliosis centered at L1. Impression: 1. New distended gallbladder without gallstones. Gallbladder sonogram may yield further information if clinically warranted. 2. New markedly distended urinary bladder. Rule out outlet obstruction versus neurogenic bladder. 3. New mild diffuse fecal stasis without obstruction. 3. Stable colonic diverticulosis, chronic bony findings, and old granulomatous disease
== END 2020-05-05 22:16 | disposition short-term general hospital (02) ==
LOC: ED 14:28
DX: K80.50 Calculus of bile duct without cholangitis or cholecystitis without obstruction (principal); K82.9 Disease of gallbladder, unspecified; E87.1 Hypo-osmolality and hyponatremia; R10.11 Right upper quadrant pain; Z79.899 Other long term (current) drug therapy; I10 Essential (primary) hypertension; E78.00 Pure hypercholesterolemia, unspecified
CPT/HCPCS: 36000; 36415; 74176; 76705; 80053; 81001; 83690; 84484; 85025; 96374; 99285; J2270; A9270-GY

== ENCOUNTER 2020-10-30 13:53 | Observation (INO) | payer MEDICARE ==
[2020-10-30] MEDS ORDERED: Sodium Chloride 0.9% 1000 ML 1,000 ML IV SCH (14:00)
[2020-10-30 14:25] LABS: Absolute Neutrophil Ct (ANC) 6.19 (1.4-6.9); BASOPHIL % 0.5 % (0.0-0.4); Basophil (Absolute #) 0.04 (0-0.4); Eosinophil % 0.1 % (0.00-5.0); Eosinophil (Absolute #) 0.01 (0-0.5); Hematocrit 38.4 % (35-47); Hemoglobin 13.1 gm/dl (12.0-16.0); Lymphocyte (Absolute #) 0.92 (1.0-4.6); Lymphocytes % 11.8 % (24.0-44.0); Mean Cell Volume 88.5 fl (78-100); Mean Corpuscular Hemoglobin 30.2 pg (26-32); Mean Corpuscular Hgb Concent. 34.1 g/dl (32-36); Mean Platelet Volume 9.8 fl (7.5-11.0); Monocyte (Absolute #) 0.63 (0.0-1.3); Monocytes % 8.1 % (0.0-12.0); Neutrophil % 79.5 % (36.0-66.0); Platelet Count 246 K/mm3 (150-450); Red Blood Count 4.34 M/mm3 (4.1-5.4); Red Cell Distribution Width 13.1 % (11.5-14.0); White Blood Count 7.8 K/mm3 (4.0-10.5)
--- NOTE | 2020-10-30 14:30 | ERPHSYRPT ---
- History of Present Illness Time Seen by Provider: 10/30/20 14:10 Source: patient Exam Limitations: no limitations Patient Subjective Stated Complaint: ppt here for abnormal labs today ,NA is 114, she states feels foggy, no pain, no nausea or vomiting Triage Nursing Assessment: pt alert, resp easy,skin w/d/p. face mask given to pt, Physician History: Patient is a 85-year-old female presents to our emergency department as a referral from her ingot caster for evaluation of hyponatremia. Patient had lab draw today. Sodium was 114. Patient states she has been feeling "foggy". Otherwise no complaints. No chest pain or shortness of breath. No nausea vomiting or diaphoresis. Symptoms are mild in intensity. No specific worsening or improving factors. Patient denies weakness. No falls. Patient voices no other complaints concerns at this time. She feels she is otherwise functioning at her baseline. Timing/Duration: today Severity: moderate Modifying Factors: Improves With: nothing Associated Symptoms: denies symptoms Allergies/Adverse Reactions: amoxicillin [Amoxicillin] Allergy (Severe, Verified 10/30/20 14:06) Swelling of Tongue and Lips Penicillins Allergy (Severe, Verified 10/30/20 14:06) Swelling of Tongue and Lips Home Medications: [place]-3 Fatty Acids/Fish Oil [Fish Oil 1,000 mg Capsule] 1 each PO TID 03/05/17 [History] Omeprazole 20 MG [Prilosec 20 mg] 20 mg PO DAILY 03/05/17 [History] Simvastatin 10 mg [Zocor 10MG] 20 mg PO DAILY 03/05/17 [History] Tamsulosin HCl 0.4 mg [Flomax 0.4 MG] 0.4 mg PO DAILY 03/05/17 [History] Valsartan/Hydrochlorothiazide [Valsartan-Hctz 320-25 mg Tab] 1 tablet PO DAILY 03/05/17 [History] Famotidine 20 mg [Pepcid 20 MG] 20 mg PO BID 10/09/19 [History] Hx Tetanus, Diphtheria Vaccination/Date Given: No Hx Influenza Vaccination/Date Given: Yes Hx Pneumococcal Vaccination/Date Given: Yes Immunizations Up to Date: Yes Travel Risk - International Travel Have you traveled outside of the country in past 3 weeks: No - Coronavirus Screening Are you exhibiting any of the following symptoms?: No Close contact with a COVID-19 positive Pt in past 14-21 Days: No - Vaccine Status Have you recieved a Covid-19 vaccination: Yes [employer]: Moderna - Vaccination Dates Date of 2cond Vaccination (if applicable): july - Review of Systems Constitutional: No Symptoms, No Fever, No Chills Eyes: No Symptoms Ears, Nose, & Throat: No Symptoms Respiratory: No Symptoms, No Cough, No Dyspnea Cardiac: No Symptoms, No Chest Pain, No Edema, No Syncope Abdominal/Gastrointestinal: No Symptoms, No Abdominal Pain, No Nausea, No Vomiting, No Diarrhea Genitourinary Symptoms: No Symptoms, No Dysuria Musculoskeletal: No Symptoms, No Back Pain, No Neck Pain Skin: No Symptoms, No Rash Neurological: No Symptoms, No Dizziness, No Focal Weakness, No Sensory Changes Psychological: No Symptoms Endocrine: No Symptoms Hematologic/Lymphatic: No Symptoms Immunological/Allergic: No Symptoms All Other Systems: Reviewed and Negative - Past Medical History Pertinent Past Medical History: Yes Neurological History: No Pertinent History ENT History: No Pertinent History Cardiac History: High Cholesterol, Hypertension Respiratory History: No Pertinent History Endocrine Medical History: No Pertinent History Musculoskeletal History: Other GI Medical History: Diverticulitis, GERD, Ulcer History: Other Psycho-Social History: No Pertinent History Female Reproductive Disorders: No Pertinent History Other Medical History: "takes flomax for bladder", sciatica. urinary h esitancy,. shingles - Past Surgical History Past Surgical History: Yes Neuro Surgical History: No Pertinent History Cardiac: No Pertinent History Respiratory: No Pertinent History Gastrointestinal: Appendectomy Genitourinary: No Pertinent History Musculoskeletal: No Pertinent History Female Surgical History: Hysterectomy Other Surgical History: COLONSCOPY - Social History Smoking Status: Former smoker Exposure to second hand smoke: No Drug Use: none Patient Lives Alone: Yes - Female History Hx Last Menstrual Period: post Hx Now: No - Nursing Vital Signs Nursing Vital Signs: Initial Vital Signs Temperature 98.1 F 10/30/20 13:58 Pulse Rate 55 L 10/30/20 13:58 Respiratory Rate 18 10/30/20 13:58 Blood Pressure 155/65 10/30/20 13:58 O2 Sat by Pulse Oximetry 99 10/30/20 13:58 Pain Scale Pain Intensity 0 - Physical Exam General Appearance: no apparent distress, alert Eye Exam: PERRL/EOMI, eyes nml inspection Ears, Nose, Throat Exam: normal ENT inspection, TMs normal, pharynx normal, moist mucous membranes Neck Exam: normal inspection, non-tender, supple, full range of motion Respiratory Exam: normal breath sounds, lungs clear, airway intact, No respiratory distress Cardiovascular Exam: regular rate/rhythm, normal heart sounds, normal peripheral pulses Gastrointestinal/Abdomen Exam: soft, normal bowel sounds, No tenderness, No mass Back Exam: normal inspection, normal range of motion, No CVA tenderness, No vertebral tenderness Extremity Exam: normal inspection, normal range of motion, pelvis stable Neurologic Exam: alert, oriented x 3, cooperative, normal mood/affect, nml cerebellar function, nml station & gait, sensation nml, No motor deficits Skin Exam: normal color, warm, dry, No rash Lymphatic Exam: No adenopathy SpO2 Interpretation: normal SpO2: 99 O2 Delivery: Room Air - Course Nursing assessment & vital signs reviewed: Yes Ordered Tests: Active Orders 24 hr Category Date Time Status IV Insertion STAT Care 10/30/20 14:00 Active CBC W DIFF Stat Lab 10/30/20 14:00 Completed CMP Stat Lab 10/30/20 14:14 Completed TROPONIN Q3H Lab 10/30/20 14:14 Completed TROPONIN Q3H Lab 10/30/20 17:15 Ordered TROPONIN Q3H Lab 10/30/20 20:15 Ordered TROPONIN Q3H Lab 10/30/20 23:15 Ordered TROPONIN Q3H Lab 10/31/20 02:15 Ordered UA W/RFX UR CULTURE Stat Lab 10/30/20 14:01 Ordered Transfer Order Routine Transfer 10/30/20 Ordered Medication Summary Generic Name Dose Route Start Last Admin Trade Name [place] PRN Reason Stop Dose Admin Sodium Chloride 1,000 mls @ 100 mls/hr 10/30/20 14:00 10/30/20 14:16 Sodium Chloride 0.9% 1000 Ml IV 11/29/20 13:59 100 mls/hr .Q10H BLANCA Administration Lab/Rad Data: Laboratory Result Diagrams 10/30/20 14:00 10/30/20 14:14 Laboratory Results 10/30/20 10/30/20 10/30/20 Range/Units 15:21 14:14 14:14 WBC (4.0-10.5) K/mm3 RBC (4.1-5.4) M/mm3 Hgb (12.0-16.0) gm/dl Hct (35-47) % MCV (78-100) fl MCH (26-32) pg MCHC (32-36) g/dl RDW (11.5-14.0) % Plt Count (150-450) K/mm3 MPV (7.5-11.0) fl Gran % (36.0-66.0) % Eos # (Auto) (0-0.5) Absolute Lymphs (auto) (1.0-4.6) Absolute Monos (auto) (0.0-1.3) Lymphocytes % (24.0-44.0) % Monocytes % (0.0-12.0) % Eosinophils % (0.00-5.0) % Basophils % (0.0-0.4) % Absolute Granulocytes (1.4-6.9) Basophils # (0-0.4) Sodium 115 L* (137-145) mmol/L Potassium 4.1 (3.5-5.1) mmol/L Chloride 76 L (98-107) mmol/L Carbon Dioxide 29 (22-30) mmol/L Anion Gap 14.3 (5-15) MEQ/L BUN 23 H (7-17) mg/dL Creatinine 2.16 H (0.52-1.04) mg/dL Estimated GFR 23.1 ML/MIN Glucose 111 H (74-106) mg/dL Calcium 9.7 (8.4-10.2) mg/dL Total Bilirubin 0.70 (0.2-1.3) mg/dL AST 39 H (14-36) U/L ALT 23 (0-35) U/L Alkaline Phosphatase 61 (38-126) U/L Troponin I < 0.012 (0.000-0.034) ng/mL Serum Total Protein 7.2 (6.3-8.2) g/dL Albumin 4.6 (3.5-5.0) g/dL SARS-CoV-2 (PCR) NEGATIVE (NEGATIVE) 10/30/20 Range/Units 14:00 WBC 7.8 (4.0-10.5) K/mm3 RBC 4.34 (4.1-5.4) M/mm3 Hgb 13.1 (12.0-16.0) gm/dl Hct 38.4 (35-47) % MCV 88.5 (78-100) fl MCH 30.2 (26-32) pg MCHC 34.1 (32-36) g/dl RDW 13.1 (11.5-14.0) % Plt Count 246 (150-450) K/mm3 MPV 9.8 (7.5-11.0) fl Gran % 79.5 H (36.0-66.0) % Eos # (Auto) 0.01 (0-0.5) Absolute Lymphs (auto) 0.92 L (1.0-4.6) Absolute Monos (auto) 0.63 (0.0-1.3) Lymphocytes % 11.8 L (24.0-44.0) % Monocytes % 8.1 (0.0-12.0) % Eosinophils % 0.1 (0.00-5.0) % Basophils % 0.5 (0.0-0.4) % Absolute Granulocytes 6.19 (1.4-6.9) Basophils # 0.04 (0-0.4) Sodium (137-145) mmol/L Potassium (3.5-5.1) mmol/L Chloride (98-107) mmol/L Carbon Dioxide (22-30) mmol/L Anion Gap (5-15) MEQ/L BUN (7-17) mg/dL Creatinine (0.52-1.04) mg/dL Estimated GFR ML/MIN Glucose (74-106) mg/dL Calcium (8.4-10.2) mg/dL Total Bilirubin (0.2-1.3) mg/dL AST (14-36) U/L ALT (0-35) U/L Alkaline Phosphatase (38-126) U/L Troponin I (0.000-0.034) ng/mL Serum Total Protein (6.3-8.2) g/dL Albumin (3.5-5.0) g/dL SARS-CoV-2 (PCR) (NEGATIVE) - Progress Progress: improved Progress Note: Patient reassessed. She is well. Work-up reveals a hyponatremia. Normal saline infusing. Case discussed with Dr. Brewster who accepts admission to observation. Plan of care discussed with patient. She agrees to admission [facility] for further evaluation and treatment. 10/30/20 16:58 Discussed with : Olivia Will see patient in: hospital (observation) Counseled pt/family regarding: lab results, diagnosis - Departure Departure Disposition: Observation Clinical Impression: Hyponatremia, Acute renal injury Condition: Stable Critical Care Time: No Referrals: ADITYA RIVERS [Primary Care Provider] -
[2020-10-30 14:45] LABS: ALBUMIN 4.6 g/dL (3.5-5.0); ANION GAP 14.3 MEQ/L (5-15); BILIRUBIN,TOTAL 0.7 mg/dL (0.2-1.3); Calcium 9.7 mg/dL (8.4-10.2); Creatinine 1 2.16 mg/dL (0.52-1.04); EST GLOMERULAR FILTRATION RATE 23.1 ML/MIN; Potassium 4.1 mmol/L (3.5-5.1); Total Protein 7.2 g/dL (6.3-8.2)
[2020-10-30] MEDS: Pepcid 20 MG PO SCH (21:06)
[2020-10-30] MEDS: FISH OIL 1,000 MG CAPSULE PO SCH (21:06)
[2020-10-30] MEDS: Lopressor 25MG Tab PO SCH (21:06)
[2020-10-30 23:28] LABS: Appearance CLEAR (CLEAR); Bilirubin NEGATIVE (NEGATIVE); Blood NEGATIVE Ery/ul (0-5); Glucose NEGATIVE (NEGATIVE); Ketones NEGATIVE (NEGATIVE); Leukocyte Esterase NEGATIVE (NEGATIVE); Nitrite NEGATIVE (NEGATIVE); Protein,Urine Dip NEGATIVE (Negative); Specific Gravity 1.005 (1.005-1.025); Urobilinogen NEGATIVE mg/dL (0-1)
[2020-10-30] MEDS: Sodium Chloride 0.9% 1000 ML 1,000 ML IV SCH (23:31)
[2020-10-31 05:30] LABS: Hematocrit 35.7 % (35-47); Mean Cell Volume 89.9 fl (78-100); Mean Corpuscular Hemoglobin 30.2 pg (26-32); Mean Corpuscular Hgb Concent. 33.6 g/dl (32-36); Mean Platelet Volume 9.9 fl (7.5-11.0); Platelet Count 244 K/mm3 (150-450); Red Blood Count 3.97 M/mm3 (4.1-5.4); Red Cell Distribution Width 13.3 % (11.5-14.0); White Blood Count 7.6 K/mm3 (4.0-10.5)
[2020-10-31 05:58] LABS: ALBUMIN 3.6 g/dL (3.5-5.0); ANION GAP 12.5 MEQ/L (5-15); BILIRUBIN,TOTAL 0.5 mg/dL (0.2-1.3); Creatinine 1 1.46 mg/dL (0.52-1.04); EST GLOMERULAR FILTRATION RATE 36.3 ML/MIN
[2020-10-31 06:17] LABS: Lymphocytes 20 % (24-44); Monocyte 7 % (0.0-12.0); Neutrophils 73 % (36.0-66.0); Platelet Estimate NORMAL (NORMAL); Total Cells Counted 100
[2020-10-31 06:18] LABS: Hypersegmented Polys 1+
[2020-10-31] MEDS: Sodium Chloride 0.9% 1000 ML 1,000 ML IV SCH (07:32)
--- NOTE | 2020-10-31 08:35 | XRAY ---
Indication: Cough. Hyponatremia. Multiple contiguous axial images obtained through the chest without contrast. Comparison: None Lungs demonstrates moderate centrilobular pulmonary emphysema, lingula subsegmental atelectasis/scarring, mild bilateral deepen notices, and a few tiny calcified granulomas. No suspicious pulmonary mass/nodule, infiltrate, or effusion. Heart borderline enlarged. Aorta moderately arteriosclerotic without aneurysm. No pathologic mediastinal lymphadenopathy. Bony thorax intact with osteopenia, mild/moderate degenerative changes throughout the spine, and moderate dextrorotoscoliosis centered at thoracolumbar junction. Limited upper abdomen demonstrates a few splenic calcified granulomas. Impression: 1. Pulmonary emphysema, scattered atelectasis/scarring, chronic bony findings, and old granulomatous disease. 2. Remaining CT chest without contrast exam is negative.
[2020-10-31 08:56] VITALS: BP 165/72
[2020-10-31 09:10] VITALS: PULSE 60; O2SAT 97
--- NOTE | 2020-10-31 09:54 | HP ---
CHIEF COMPLAINT: Low sodium. HISTORY OF PRESENT ILLNESS: The patient is an 85 year-old white female patient of Dr. Crowell who has had routine lab tests done recently. She has been having issues with low sodium and in fact her sodium came back at 114 on her labs. She was instructed to go to the emergency room for further evaluation and management. In the emergency room the patient did report she was having some funny feeling in her head, feeling foggy but otherwise having no additional problems. She has been following with her fieldwork coordinator for treatment. The patient was noted to have several serum osmolality's done but I have not seen a sodium since June on my chart records which at that time was 134. PAST MEDICAL/SURGICAL HISTORY: The patient's medical history otherwise includes hypertension, gastroesophageal reflux disease, hyperlipidemia. She denies any other significant medical illnesses. She does take Flomax for her bladder issues. She previously had a hysterectomy and cholecystectomy. HOME MEDICATIONS: Aspirin 325 mg a day, famotidine 20 mg a day, metoprolol 25 mg twice a day. She takes omega-3 fatty acid 1,000 mg t.i.d., omeprazole 20 mg a day, simvastatin 20 mg a day, tamsulosin 0.4 mg a day, Valsartan/hydrochlorothiazide 320-25 mg daily. ALLERGIES: AMOXICILLIN. PENICILLILN. SOCIAL HISTORY: She is a former smoker. PHYSICAL EXAMINATION: The patient is noted to have vital signs on admission reveal temperature 98.1F, pulse 55, respiratory rate 18 and blood pressure 155/65. O2 saturation 99%. HEENT: Appears to be normocephalic, atraumatic. Pupils equal round reactive to light. Extraocular movements intact. Oropharynx is somewhat dry. NECK: Supple without lymphadenopathy, thyromegaly or JVD. CHEST: Clear to auscultation. HEART: Regular rate and rhythm without significant murmurs, rubs or gallops heard. ABDOMEN: Soft. No palpable masses. EXTREMITIES: Without cyanosis, clubbing or edema. NEUROLOGIC: The patient appears to be alert and oriented x3 with no focal deficits noted. LAB DATA AND TESTS: The patient's laboratory studies in the emergency room she was negative for COVID. Her troponin was less than 0.012. Her white count was 7,800, hemoglobin 13.1, PLT count 246,000. Her glucose is 111, BUN 22, creatinine 2.16. Her sodium was confirmed at 115, potassium 4.1, chloride 76. Liver enzymes were normal other than slight elevation of AST at 39. Alkaline phosphatase and anion gap were normal. She had a slight elevation of D-dimer at 698. UA was normal with specific gravity 1.005. ASSESSMENT: A patient with severe hyponatremia. She was admitted to the hospital for saline infusions at 125 cc/hour. She was placed on fluid restriction with just 400 cc only by mouth. We will attempt to get a hold of Dr. Campo for further consultation as this is his patient ordinarily. The patient did have a chest CT also performed for worries about possible intrathoracic problems that might be leading to SIADH syndrome but this essentially was significant just for emphysema, lingular scarring and right base calcified granuloma otherwise it was negative.
[2020-10-31] MEDS ORDERED: ZOCOR 20MG PO SCH (10:00)
[2020-10-31] MEDS ORDERED: NON-FORMULARY ITEM (Omeprazole 20 Mg [Prilosec 20 Mg] 20 MG) PO SCH (10:00)
[2020-10-31] MEDS ORDERED: ECOTRIN 81 MG PO SCH (10:00)
[2020-10-31] MEDS ORDERED: Protonix 40MG Tablet PO SCH (10:00)
[2020-10-31] MEDS ORDERED: Zocor 10MG PO SCH (10:00)
[2020-10-31] MEDS ORDERED: Flomax 0.4 MG PO SCH (10:00)
[2020-10-31] MEDS: Lopressor 25MG Tab PO SCH (10:04)
[2020-10-31] MEDS: FISH OIL 1,000 MG CAPSULE PO SCH (10:04)
[2020-10-31] MEDS: Pepcid 20 MG PO SCH (10:04)
== END 2020-10-31 11:30 | disposition home health service (06) ==
LOC: ED 13:53 → MED SURG 17:13
PROVIDERS: ADMIT Family Medicine; ATTEND Family Medicine
DX: E87.1 Hypo-osmolality and hyponatremia (principal); I10 Essential (primary) hypertension; E78.5 Hyperlipidemia, unspecified; J43.9 Emphysema, unspecified; Z79.899 Other long term (current) drug therapy; Z20.828 Contact with and (suspected) exposure to other viral communicable diseases
CPT/HCPCS: 36000; 36415; 71250; 80053; 81001; 83935; 84300; 84484; 85025; 85379; 93268; 96360; 96361; 99285; G0378; U0003; 82306; 82570; 83930; 84133; 84156; 85027; A9270-GY

== ENCOUNTER 2020-11-26 17:02 | Emergency (ER) | payer MEDICARE ==
[2020-11-26 18:18] LABS: Absolute Neutrophil Ct (ANC) 3.34 (1.4-6.9); BASOPHIL % 0.5 % (0.0-0.4); Basophil (Absolute #) 0.03 (0-0.4); Eosinophil % 1.4 % (0.00-5.0); Eosinophil (Absolute #) 0.08 (0-0.5); Hematocrit 38.6 % (35-47); Hemoglobin 12.3 gm/dl (12.0-16.0); Lymphocyte (Absolute #) 1.59 (1.0-4.6); Lymphocytes % 27.6 % (24.0-44.0); Mean Cell Volume 99.2 fl (78-100); Mean Corpuscular Hemoglobin 31.6 pg (26-32); Mean Corpuscular Hgb Concent. 31.9 g/dl (32-36); Mean Platelet Volume 9.9 fl (7.5-11.0); Monocyte (Absolute #) 0.72 (0.0-1.3); Monocytes % 12.5 % (0.0-12.0); Platelet Count 205 K/mm3 (150-450); Red Blood Count 3.89 M/mm3 (4.1-5.4); Red Cell Distribution Width 16.6 % (11.5-14.0); White Blood Count 5.8 K/mm3 (4.0-10.5)
--- NOTE | 2020-11-26 18:31 | ERPHSYRPT ---
- History of Present Illness Time Seen by Provider: 11/26/20 17:04 Source: patient Exam Limitations: no limitations Patient Subjective Stated Complaint: Pt states "my physical therapist was in my house today and they took my blood pressure and it was high and they called Dr. Brewster who is my Dr. and he told me to come here." Triage Nursing Assessment: Pt presented alert and oriented X 3, skin pwd Pt ambulates with an upright slow gait, able to speak in clear full sentences pt in no apparent respiratory distress. Physician History: 85 years old female with history of hypertension and sent in ER by home health after her blood pressure was noted to be elevated. Patient blood pressure systolic on presentation is 192. She denies any headache, blurry vision, numbness tingling or focal weakness. Denies any chest pain palpitations or shortness of breath. Patient denies any symptoms currently at his baseline. Timing/Duration: today Severity: moderate Associated Symptoms: denies symptoms Allergies/Adverse Reactions: amoxicillin [Amoxicillin] Allergy (Severe, Verified 10/30/20 14:06) Swelling of Tongue and Lips Penicillins Allergy (Severe, Verified 10/30/20 14:06) Swelling of Tongue and Lips Home Medications: [place]-3 Fatty Acids/Fish Oil [Fish Oil 1,000 mg Capsule] 1 each PO TID 03/05/17 [History] Omeprazole 20 MG [Prilosec 20 mg] 20 mg PO DAILY 03/05/17 [History] Tamsulosin HCl 0.4 mg [Flomax 0.4 MG] 0.4 mg PO DAILY 03/05/17 [History] Famotidine 20 mg [Pepcid 20 MG] 20 mg PO BID 10/09/19 [History] Hx Tetanus, Diphtheria Vaccination/Date Given: No Hx Influenza Vaccination/Date Given: Yes Hx Pneumococcal Vaccination/Date Given: Yes Immunizations Up to Date: Yes Travel Risk - International Travel Have you traveled outside of the country in past 3 weeks: No - Coronavirus Screening Are you exhibiting any of the following symptoms?: No Close contact with a COVID-19 positive Pt in past 14-21 Days: No - Vaccine Status Have you recieved a Covid-19 vaccination: Yes Cooker Syrup: Moderna - Vaccination Dates Date of 2cond Vaccination (if applicable): 07/2020 - Review of Systems Constitutional: No Symptoms Eyes: No Symptoms Ears, Nose, & Throat: No Symptoms Respiratory: No Symptoms Cardiac: No Symptoms Abdominal/Gastrointestinal: No Symptoms Genitourinary Symptoms: No Symptoms Musculoskeletal: Arthralgias Skin: No Symptoms Neurological: No Symptoms Psychological: No Symptoms Endocrine: No Symptoms Hematologic/Lymphatic: No Symptoms Immunological/Allergic: No Symptoms - Past Medical History Pertinent Past Medical History: Yes Neurological History: No Pertinent History ENT History: No Pertinent History Cardiac History: High Cholesterol, Hypertension Respiratory History: No Pertinent History Endocrine Medical History: No Pertinent History Musculoskeletal History: Other GI Medical History: Diverticulosis, GERD, Ulcer History: Other Psycho-Social History: No Pertinent History Female Reproductive Disorders: No Pertinent History Other Medical History: "takes flomax for bladder", sciatica. urinary hesitancy,. shingles - Past Surgical History Past Surgical History: Yes Neuro Surgical History: No Pertinent History Cardiac: No Pertinent History Respiratory: No Pertinent History Gastrointestinal: Appendectomy Genitourinary: No Pertinent History Musculoskeletal: No Pertinent History Female Surgical History: Hysterectomy Other Surgical History: COLONSCOPY - Social History Smoking Status: Former smoker Exposure to second hand smoke: No Drug Use: none Patient Lives Alone: Yes - Female History Hx Now: No - Nursing Vital Signs Nursing Vital Signs: Initial Vital Signs Temperature 97.3 F 11/26/20 17:18 Pulse Rate 66 11/26/20 17:18 Respiratory Rate 20 11/26/20 17:18 Blood Pressure 192/73 11/26/20 17:18 O2 Sat by Pulse Oximetry 99 11/26/20 17:18 Pain Scale Pain Intensity 0 - Physical Exam General Appearance: no apparent distress, alert Eye Exam: PERRL/EOMI, eyes nml inspection Ears, Nose, Throat Exam: normal ENT inspection, pharynx normal Neck Exam: normal inspection, non-tender, supple, full range of motion Respiratory Exam: normal breath sounds, lungs clear Cardiovascular Exam: regular rate/rhythm, normal heart sounds Gastrointestinal/Abdomen Exam: soft, normal bowel sounds, No tenderness Back Exam: normal inspection, normal range of motion Extremity Exam: normal inspection, normal range of motion Neurologic Exam: alert, oriented x 3, cooperative, 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 as tested, normal mood/affect, nml cerebellar function, nml station & gait, sensation nml, No motor deficits Skin Exam: normal color SpO2 Interpretation: normal SpO2: 99 O2 Delivery: Room Air - Course EKG Interpreted by Me: RATE (58), Sinus Stanislaw, NORMAL AXIS, NORMAL INTERVALS, Other (LVH pattern) Ordered Tests: Medication Summary Discontinued Medications Generic Name Dose Route Start Last Admin Trade Name Mina PRN Reason Stop Dose Admin Cephalexin HCl 500 mg 11/26/20 20:38 11/26/20 20:39 Keflex 500 Mg PO 11/26/20 20:39 500 mg STAT ONE Administration Cephalexin HCl Confirm 11/26/20 20:37 Keflex 500 Mg Administered 11/26/20 20:38 Dose 500 mg .ROUTE .STK-MED ONE Clonidine 0.2 mg 11/26/20 18:43 11/26/20 19:07 Catapres 0.1 Mg PO 11/26/20 18:44 0.2 mg STAT ONE Administration Clonidine Confirm 11/26/20 19:05 Catapres 0.1 Mg Administered 11/26/20 19:06 Dose 0.2 mg .ROUTE .STK-MED ONE Lab/Rad Data: Laboratory Result Diagrams 11/26/20 17:57 11/26/20 17:57 Laboratory Results 11/26/20 11/26/20 11/26/20 Range/Units 19:48 17:57 17:57 WBC 5.8 (4.0-10.5) K/mm3 RBC 3.89 L (4.1-5.4) M/mm3 Hgb 12.3 (12.0-16.0) gm/dl Hct 38.6 (35-47) % MCV 99.2 (78-100) fl MCH 31.6 (26-32) pg MCHC 31.9 L (32-36) g/dl RDW 16.6 H (11.5-14.0) % Plt Count 205 (150-450) K/mm3 MPV 9.9 (7.5-11.0) fl Gran % 58.0 (36.0-66.0) % Eos # (Auto) 0.08 (0-0.5) Absolute Lymphs (auto) 1.59 (1.0-4.6) Absolute Monos (auto) 0.72 (0.0-1.3) Lymphocytes % 27.6 (24.0-44.0) % Monocytes % 12.5 H (0.0-12.0) % Eosinophils % 1.4 (0.00-5.0) % Basophils % 0.5 (0.0-0.4) % Absolute Granulocytes 3.34 (1.4-6.9) Basophils # 0.03 (0-0.4) Sodium 140 (137-145) mmol/L Potassium 3.7 (3.5-5.1) mmol/L Chloride 102 (98-107) mmol/L Carbon Dioxide 28 (22-30) mmol/L Anion Gap 13.5 (5-15) MEQ/L BUN 19 H (7-17) mg/dL Creatinine 1.13 H (0.52-1.04) mg/dL Estimated GFR 48.8 ML/MIN Glucose 97 (74-106) mg/dL Calcium 9.1 (8.4-10.2) mg/dL Total Bilirubin 0.30 (0.2-1.3) mg/dL AST 32 (14-36) U/L ALT 25 (0-35) U/L Alkaline Phosphatase 66 (38-126) U/L Troponin I (0.000-0.034) ng/mL NT-Pro-B Natriuret Pep 561 (0-1800) pg/mL Serum Total Protein 6.6 (6.3-8.2) g/dL Albumin 4.0 (3.5-5.0) g/dL Urine Color YELLOW (YELLOW) Urine Appearance SLIGHTLY CLOUDY (CLEAR) Urine pH 6.0 (5-6) Ur Specific Sharon 1.014 (1.005-1.025) Urine Protein NEGATIVE (Negative) Urine Ketones NEGATIVE (NEGATIVE) Urine Blood NEGATIVE (0-5) Nash/ul Urine Nitrite NEGATIVE (NEGATIVE) Urine Bilirubin NEGATIVE (NEGATIVE) Urine Urobilinogen NEGATIVE (0-1) mg/dL Ur Leukocyte Esterase LARGE (NEGATIVE) Urine WBC (Auto) 16-25 (0-5) /HPF Urine RBC (Auto) 3-5 (0-2) /HPF U Epithel Cells (Auto) RARE (FEW) /HPF Urine Bacteria (Auto) NONE SEEN (NEGATIVE) /HPF Urine Mucus (Auto) SLIGHT (NEGATIVE) /HPF Urine Culture Reflexed YES (NO) Urine Glucose NEGATIVE (NEGATIVE) mg/dL 11/26/20 Range/Units 17:57 WBC (4.0-10.5) K/mm3 RBC (4.1-5.4) M/mm3 Hgb (12.0-16.0) gm/dl Hct (35-47) % MCV (78-100) fl MCH (26-32) pg MCHC (32-36) g/dl RDW (11.5-14.0) % Plt Count (150-450) K/mm3 MPV (7.5-11.0) fl Gran % (36.0-66.0) % Eos # (Auto) (0-0.5) Absolute Lymphs (auto) (1.0-4.6) Absolute Monos (auto) (0.0-1.3) Lymphocytes % (24.0-44.0) % Monocytes % (0.0-12.0) % Eosinophils % (0.00-5.0) % Basophils % (0.0-0.4) % Absolute Granulocytes (1.4-6.9) Basophils # (0-0.4) Sodium (137-145) mmol/L Potassium (3.5-5.1) mmol/L Chloride (98-107) mmol/L Carbon Dioxide (22-30) mmol/L Anion Gap (5-15) MEQ/L BUN (7-17) mg/dL Creatinine (0.52-1.04) mg/dL Estimated GFR ML/MIN Glucose (74-106) mg/dL Calcium (8.4-10.2) mg/dL Total Bilirubin (0.2-1.3) mg/dL AST (14-36) U/L ALT (0-35) U/L Alkaline Phosphatase (38-126) U/L Troponin I < 0.012 (0.000-0.034) ng/mL NT-Pro-B Natriuret Pep (0-1800) pg/mL Serum Total Protein (6.3-8.2) g/dL Albumin (3.5-5.0) g/dL Urine Color (YELLOW) Urine Appearance (CLEAR) Urine pH (5-6) Ur Specific Sharon (1.005-1.025) Urine Protein (Negative) Urine Ketones (NEGATIVE) Urine Blood (0-5) Nash/ul Urine Nitrite (NEGATIVE) Urine Bilirubin (NEGATIVE) Urine Urobilinogen (0-1) mg/dL Ur Leukocyte Esterase (NEGATIVE) Urine WBC (Auto) (0-5) /HPF Urine RBC (Auto) (0-2) /HPF U Epithel Cells (Auto) (FEW) /HPF Urine Bacteria (Auto) (NEGATIVE) /HPF Urine Mucus (Auto) (NEGATIVE) /HPF Urine Culture Reflexed (NO) Urine Glucose (NEGATIVE) mg/dL - Progress Progress: improved, re-examined Progress Note: 11/26/20 20:14 35 years old is evaluated in the ER for elevated blood pressure. Patient has nonfocal neuro exam. Notes signs symptoms suggesting endorgan damage. EKG showed sinus bradycardia at rate of [address] elevations and negative troponins. Grossly unremarkable chemistries. Does have chronic kidney disease which is not any worse than baseline. Chest x-ray showed some cardiomegaly with no acute changes reviewed by me, official report is pending. Patient blood pressure was in 190s, given clonidine orally and it is improved in 160s. She is advised to have low-salt diet and I will give her clonidine few pills to go home to take only as needed. Recommended outpatient follow-up. Discussed signs symptoms of worsening needing return to ER which she seems understanding. Stable for discharge. Still have UTI although patient has been taking Levaquin. I would start her on Keflex based on previous sensitivities. Counseled pt/family regarding: lab results, diagnosis, need for follow-up, rad results - Departure Departure Disposition: Home Clinical Impression: Uncontrolled hypertension UTI (urinary tract infection) Qualifiers: Urinary tract infection type: site unspecified Hematuria presence: without hematuria Qualified Code(s): N39.0 - Urinary tract infection, site not specified Condition: Stable Critical Care Time: No Referrals: JERMAINE BREWSTER [Primary Care Provider] - (1-2 days for reevaluation) Instructions: Malignant Hypertension (DC) Additional Instructions: Monitor your blood pressure regularly, keep a log and follow-up with primary care for reevaluation in the next 1 to 2 days. Take clonidine only as needed if blood pressure is greater than 160 despite taking your routine medications. Take low-salt diet. Return to ER for having uncontrolled hypertension with headache, blurry vision, chest pain, abdominal pain, nausea vomiting or shortness of breath etc. Prescriptions: Clonidine HCl 0.1 mg [Catapres 0.1 MG] 0.1 mg PO Q12H PRN PRN 10 Days #10 tablet PRN Reason: Hypertension Cephalexin Mh 500 mg [Keflex 500 mg] 500 mg PO TID #21 capsule
[2020-11-26 18:36] LABS: ANION GAP 13.5 MEQ/L (5-15); BILIRUBIN,TOTAL 0.3 mg/dL (0.2-1.3); Calcium 9.1 mg/dL (8.4-10.2); Creatinine 1 1.13 mg/dL (0.52-1.04); EST GLOMERULAR FILTRATION RATE 48.8 ML/MIN; Potassium 3.7 mmol/L (3.5-5.1); Total Protein 6.6 g/dL (6.3-8.2)
[2020-11-26] MEDS ORDERED: Catapres 0.1 MG PO ONE (18:43)
[2020-11-26] MEDS ORDERED: Catapres 0.1 MG ONE (19:05)
[2020-11-26 20:25] VITALS: BP 164/56
[2020-11-26 20:26] LABS: Appearance SLIGHTLY CLOUDY (CLEAR); Bacteria NONE SEEN /HPF (NEGATIVE); Bilirubin NEGATIVE (NEGATIVE); Blood NEGATIVE Ery/ul (0-5); Epithelial Cells RARE /HPF (FEW); Glucose NEGATIVE (NEGATIVE); Ketones NEGATIVE (NEGATIVE); Leukocyte Esterase LARGE (NEGATIVE); Mucus SLIGHT /HPF (NEGATIVE); Nitrite NEGATIVE (NEGATIVE); Protein,Urine Dip NEGATIVE (Negative); Specific Gravity 1.014 (1.005-1.025); Urobilinogen NEGATIVE mg/dL (0-1)
[2020-11-26] MEDS ORDERED: KEFLEX 500 MG ONE (20:37)
[2020-11-26] MEDS ORDERED: KEFLEX 500 MG PO ONE (20:38)
[2020-11-26 21:10] VITALS: PULSE 55
--- NOTE | 2020-11-27 08:46 | XRAY ---
Indication: Hypertension. Comparison: March 05, 2017. Portable apical lordotic chest demonstrates new tiny right base calcified granuloma and minimal left costophrenic angle fibrosis/scarring. No focal infiltrate, consolidation, or large effusion. Heart is not enlarged for AP portable technique. Bony thorax intact again with osteopenia, degenerative changes, and scoliosis. Impression: Nonacute chest with chronic features.
[2020-11-30 09:42] VITALS: O2SAT 99
== END 2020-11-26 21:07 | disposition home or self-care (01) ==
LOC: ED 17:02
DX: I12.9 Hypertensive chronic kidney disease with stage 1 through stage 4 chronic kidney disease, or unspecified chronic kidney disease (principal); N18.9 Chronic kidney disease, unspecified; N39.0 Urinary tract infection, site not specified; I51.7 Cardiomegaly; E78.00 Pure hypercholesterolemia, unspecified
CPT/HCPCS: 36415; 71045; 80053; 81001; 83880; 84484; 85025; 87086; 93005; 93041; 99284; A9270-GY

== ENCOUNTER 2020-12-06 13:49 | Emergency (ER) | payer MEDICARE ==
[2020-12-06] MEDS ORDERED: NORVASC 5 MG PO ONE ×2 (14:38→15:06)
[2020-12-06] MEDS ORDERED: Sodium Chloride 0.9% 1000 ML 1,000 ML IV SCH (14:45)
[2020-12-06 14:55] LABS: BASOPHIL % 0.3 % (0.0-0.4); Basophil (Absolute #) 0.02 (0-0.4); Eosinophil % 1.3 % (0.00-5.0); Eosinophil (Absolute #) 0.08 (0-0.5); Hematocrit 38.5 % (35-47); Hemoglobin 12.4 gm/dl (12.0-16.0); Lymphocyte (Absolute #) 1.41 (1.0-4.6); Lymphocytes % 23.6 % (24.0-44.0); Mean Corpuscular Hemoglobin 32.2 pg (26-32); Mean Corpuscular Hgb Concent. 32.2 g/dl (32-36); Mean Platelet Volume 9.4 fl (7.5-11.0); Monocyte (Absolute #) 0.66 (0.0-1.3); Monocytes % 11.1 % (0.0-12.0); Neutrophil % 63.7 % (36.0-66.0); Platelet Count 215 K/mm3 (150-450); Red Blood Count 3.85 M/mm3 (4.1-5.4); Red Cell Distribution Width 15.9 % (11.5-14.0)
[2020-12-06] MEDS ORDERED: Sodium Chloride 0.9% 1000 ML 1,000 ML ONE (15:04)
[2020-12-06] MEDS ORDERED: NORVASC 5 MG ONE (15:04)
[2020-12-06 15:28] LABS: ALBUMIN 3.7 g/dL (3.5-5.0); ANION GAP 12.6 MEQ/L (5-15); BILIRUBIN,TOTAL 0.3 mg/dL (0.2-1.3); Creatinine 1 1.18 mg/dL (0.52-1.04); EST GLOMERULAR FILTRATION RATE 46.4 ML/MIN; MAGNESIUM 1.7 mg/dL (1.6-2.3); Potassium 3.7 mmol/L (3.5-5.1); Total Protein 6.1 g/dL (6.3-8.2)
[2020-12-06 15:34] VITALS: O2SAT 98
[2020-12-06] MEDS ORDERED: Catapres 0.1 MG PO ONE (16:34)
--- NOTE | 2020-12-06 16:42 | ERPHSYRPT ---
- History of Present Illness Time Seen by Provider: 12/06/20 14:10 Source: patient Exam Limitations: no limitations Patient Subjective Stated Complaint: pt here for high b/p today at home she took her b/p meds plus an extra clonidine, she states she got nervous and dizzy after she realized her b/p was high Triage Nursing Assessment: pt alert, resp easy, face mask in place, skin w/d/p. no edema noted Physician History: Is an 85-year-old white female patient of Dr. Brewster's who presents concerned about her blood pressure readings. She has been following them for a few days at the request of Dr. Brewstre she did have a reading systolic of over 200 this morning. She is maintained on metoprolol 25 mg twice daily and clonidine 0.1 3 times daily. She does have a chronically low heart rate in the 50 range. Denies any shortness of breath chest pain etc. Timing/Duration: intermittent Activities at Onset: none Severity of Pain-Max: none Severity of Pain-Current: none Modifying Factors: Improves With: nothing Nitro Today/Relief: no nitro taken today Aspirin Treatment Today: no aspirin today Associated Symptoms: denies symptoms Allergies/Adverse Reactions: amoxicillin [Amoxicillin] Allergy (Severe, Verified 12/06/20 13:59) Swelling of Tongue and Lips Penicillins Allergy (Severe, Verified 12/06/20 13:59) Swelling of Tongue and Lips Home Medications: [place]-3 Fatty Acids/Fish Oil [Fish Oil 1,000 mg Capsule] 1 each PO TID 03/05/17 [History] Omeprazole 20 MG [Prilosec 20 mg] 20 mg PO DAILY 03/05/17 [History] Tamsulosin HCl 0.4 mg [Flomax 0.4 MG] 0.4 mg PO DAILY 03/05/17 [History] Famotidine 20 mg [Pepcid 20 MG] 20 mg PO BID 10/09/19 [History] Hx Tetanus, Diphtheria Vaccination/Date Given: No Hx Influenza Vaccination/Date Given: Yes Hx Pneumococcal Vaccination/Date Given: Yes Immunizations Up to Date: Yes Travel Risk - International Travel Have you traveled outside of the country in past 3 weeks: No - Coronavirus Screening Are you exhibiting any of the following symptoms?: No Close contact with a COVID-19 positive Pt in past 14-21 Days: No - Vaccine Status Have you recieved a Covid-19 vaccination: Yes Other Spatial Scientist: Moderna - Vaccination Dates Date of 2cond Vaccination (if applicable): 07/2020 - Review of Systems Constitutional: No Fever, No Chills Eyes: No Symptoms Ears, Nose, & Throat: No Symptoms Respiratory: No Cough, No Dyspnea Cardiac: No Chest Pain, No Edema, No Syncope Abdominal/Gastrointestinal: No Abdominal Pain, No Nausea, No Vomiting, No Diarrhea Genitourinary Symptoms: No Dysuria Musculoskeletal: No Back Pain, No Neck Pain Skin: No Rash Neurological: No Dizziness, No Focal Weakness, No Sensory Changes Psychological: No Symptoms Endocrine: No Symptoms All Other Systems: Reviewed and Negative - Past Medical History Pertinent Past Medical History: Yes Neurological History: No Pertinent History ENT History: No Pertinent History Cardiac History: High Cholesterol, Hypertension Respiratory History: No Pertinent History Endocrine Medical History: No Pertinent History Musculoskeletal History: Other GI Medical History: Diverticulosis, GERD, Ulcer History: Other Psycho-Social History: No Pertinent History Female Reproductive Disorders: No Pertinent History Other Medical History: "takes flomax for bladder", sciatica. urinary hesitancy,. shingles - Past Surgical History Past Surgical History: Yes Neuro Surgical History: No Pertinent History Cardiac: No Pertinent History Respiratory: No Pertinent History Gastrointestinal: Appendectomy Genitourinary: No Pertinent History Musculoskeletal: No Pertinent History Female Surgical History: Hysterectomy Other Surgical History: COLONSCOPY - Social History Smoking Status: Former smoker Exposure to second hand smoke: No Drug Use: none Patient Lives Alone: Yes - Female History Hx Last Menstrual Period: post Hx Now: No - Nursing Vital Signs Nursing Vital Signs: Initial Vital Signs Temperature 97.0 F 12/06/20 13:53 Pulse Rate 50 L 12/06/20 13:53 Respiratory Rate 18 12/06/20 13:53 Blood Pressure 158/65 12/06/20 13:53 O2 Sat by Pulse Oximetry 99 12/06/20 13:53 Pain Scale Pain Intensity 0 - Physical Exam General Appearance: no apparent distress, alert Eye Exam: PERRL/EOMI, eyes nml inspection Ears, Nose, Throat Exam: normal ENT inspection, moist mucous membranes Neck Exam: normal inspection, non-tender, supple Respiratory Exam: normal breath sounds, lungs clear, No respiratory distress Cardiovascular Exam: regular rate/rhythm, normal heart sounds, No edema Gastrointestinal/Abdomen Exam: soft, No tenderness, No mass Back Exam: normal inspection, No CVA tenderness, No vertebral tenderness Extremity Exam: normal inspection, normal range of motion Neurologic Exam: alert, oriented x 3, cooperative, normal mood/affect, nml cerebellar function, sensation nml, No motor deficits Skin Exam: normal color, warm, dry Lymphatic Exam: No adenopathy SpO2 Interpretation: normal SpO2: 98 O2 Delivery: Room Air - Course Nursing assessment & vital signs reviewed: Yes EKG Interpreted by Me: RATE ([id number]), Sinus Stanislaw, NORMAL AXIS, NORMAL INTERVALS, NORMAL QRS, Non-specific ST Changes - Radiology Exams Chest X-ray Interpretation: Interpreted by me, Negative (Negative for any acute process.) Ordered Tests: Active Orders 24 hr Category Date Time Status EKG-ER Only STAT Care 12/06/20 14:38 Active IV Insertion STAT Care 12/06/20 15:13 Active CHEST 1 VIEW (PORTABLE) Stat Exams 12/06/20 14:39 Taken AMYLASE Stat Lab 12/06/20 14:53 Completed CBC W DIFF Stat Lab 12/06/20 14:53 Completed CMP Stat Lab 12/06/20 14:53 Completed CULTURE,URINE Stat Lab 12/06/20 16:31 Received LIPASE Stat Lab 12/06/20 14:53 Completed MAGNESIUM Stat Lab 12/06/20 14:53 Completed NT PRO BNP Stat Lab 12/06/20 14:53 Completed TROPONIN Q3H Lab 12/06/20 14:53 Completed TROPONIN Q3H Lab 12/06/20 17:57 Received TROPONIN Q3H Lab 12/06/20 20:45 Ordered TROPONIN Q3H Lab 12/06/20 23:45 Ordered TROPONIN Q3H Lab 12/07/20 02:45 Ordered UA W/RFX UR CULTURE Stat Lab 12/06/20 16:31 Completed Medication Summary Generic Name Dose Route Start Last Admin Trade Name Freq PRN Reason Stop Dose Admin Sodium Chloride 1,000 mls @ 50 mls/hr 12/06/20 14:45 12/06/20 15:08 Sodium Chloride 0.9% 1000 Ml IV 01/05/21 14:44 50 mls/hr .Q20H BLANCA Administration Discontinued Medications Generic Name Dose Route Start Last Admin Trade Name Freq PRN Reason Stop Dose Admin Amlodipine Besylate 10 mg 12/06/20 14:38 12/06/20 15:06 Norvasc 5 Mg PO 12/06/20 14:39 Not Given STAT ONE Amlodipine Besylate Confirm 12/06/20 15:04 Norvasc 5 Mg Administered 12/06/20 15:05 Dose 5 mg .ROUTE .STK-MED ONE Amlodipine Besylate 5 mg 12/06/20 15:06 12/06/20 15:08 Norvasc 5 Mg PO 12/06/20 15:07 5 mg STAT ONE Administration Clonidine 0.1 mg 12/06/20 16:34 12/06/20 16:44 Catapres 0.1 Mg PO 12/06/20 16:35 0.1 mg STAT ONE Administration Clonidine Confirm 12/06/20 16:44 Catapres 0.1 Mg Administered 12/06/20 16:45 Dose 0.1 mg .ROUTE .[facility] ONE Lab/Rad Data: Laboratory Result Diagrams 12/06/20 14:53 12/06/20 14:53 Laboratory Results 12/06/20 12/06/20 12/06/20 Range/Units 16:31 14:53 14:53 WBC (4.0-10.5) K/mm3 RBC (4.1-5.4) M/mm3 Hgb (12.0-16.0) gm/dl Hct (35-47) % MCV (78-100) fl MCH (26-32) pg MCHC (32-36) g/dl RDW (11.5-14.0) % Plt Count (150-450) K/mm3 MPV (7.5-11.0) fl Gran % (36.0-66.0) % Eos # (Auto) (0-0.5) Absolute Lymphs (auto) (1.0-4.6) Absolute Monos (auto) (0.0-1.3) Lymphocytes % (24.0-44.0) % Monocytes % (0.0-12.0) % Eosinophils % (0.00-5.0) % Basophils % (0.0-0.4) % Absolute Granulocytes (1.4-6.9) Basophils # (0-0.4) Sodium 141 (137-145) mmol/L Potassium 3.7 (3.5-5.1) mmol/L Chloride 103 (98-107) mmol/L Carbon Dioxide 28 (22-30) mmol/L Anion Gap 12.6 (5-15) MEQ/L BUN 21 H (7-17) mg/dL Creatinine 1.18 H (0.52-1.04) mg/dL Estimated GFR 46.4 ML/MIN Glucose 96 (74-106) mg/dL Calcium 9.0 (8.4-10.2) mg/dL Magnesium 1.7 (1.6-2.3) mg/dL Total Bilirubin 0.30 (0.2-1.3) mg/dL AST 27 (14-36) U/L ALT 22 (0-35) U/L Alkaline Phosphatase 53 (38-126) U/L Troponin I 0.013 (0.000-0.034) ng/mL NT-Pro-B Natriuret Pep 2150 H (0-1800) pg/mL Serum Total Protein 6.1 L (6.3-8.2) g/dL Albumin 3.7 (3.5-5.0) g/dL Amylase 106 (30-110) U/L Lipase 87 (23-300) U/L Urine Color YELLOW (YELLOW) Urine Appearance SLIGHTLY CLOUDY (CLEAR) Urine pH 6.0 (5-6) Ur Specific [place] 1.017 (1.005-1.025) Urine Protein NEGATIVE (Negative) Urine Ketones NEGATIVE (NEGATIVE) Urine Blood NEGATIVE (0-5) Nash/ul Urine Nitrite NEGATIVE (NEGATIVE) Urine Bilirubin NEGATIVE (NEGATIVE) Urine Urobilinogen NEGATIVE (0-1) mg/dL Ur Leukocyte Esterase LARGE (NEGATIVE) Urine WBC (Auto) 16-25 (0-5) /HPF Urine RBC (Auto) 3-5 (0-2) /HPF U Epithel Cells (Auto) RARE (FEW) /HPF Urine Bacteria (Auto) RARE (NEGATIVE) /HPF Urine Mucus (Auto) SLIGHT (NEGATIVE) /HPF Urine Culture Reflexed YES (NO) Urine Glucose NEGATIVE (NEGATIVE) mg/dL 12/06/20 Range/Units 14:53 WBC 6.0 (4.0-10.5) K/mm3 RBC 3.85 L (4.1-5.4) M/mm3 Hgb 12.4 (12.0-16.0) gm/dl Hct 38.5 (35-47) % MCV 100.0 (78-100) fl MCH 32.2 H (26-32) pg MCHC 32.2 (32-36) g/dl RDW 15.9 H (11.5-14.0) % Plt Count 215 (150-450) K/mm3 MPV 9.4 (7.5-11.0) fl Gran % 63.7 (36.0-66.0) % Eos # (Auto) 0.08 (0-0.5) Absolute Lymphs (auto) 1.41 (1.0-4.6) Absolute Monos (auto) 0.66 (0.0-1.3) Lymphocytes % 23.6 L (24.0-44.0) % Monocytes % 11.1 (0.0-12.0) % Eosinophils % 1.3 (0.00-5.0) % Basophils % 0.3 (0.0-0.4) % Absolute Granulocytes 3.80 (1.4-6.9) Basophils # 0.02 (0-0.4) Sodium (137-145) mmol/L Potassium (3.5-5.1) mmol/L Chloride (98-107) mmol/L Carbon Dioxide (22-30) mmol/L Anion Gap (5-15) MEQ/L BUN (7-17) mg/dL Creatinine (0.52-1.04) mg/dL Estimated GFR ML/MIN Glucose (74-106) mg/dL Calcium (8.4-10.2) mg/dL Magnesium (1.6-2.3) mg/dL Total Bilirubin (0.2-1.3) mg/dL AST (14-36) U/L ALT (0-35) U/L Alkaline Phosphatase (38-126) U/L Troponin I (0.000-0.034) ng/mL NT-Pro-B Natriuret Pep (0-1800) pg/mL Serum Total Protein (6.3-8.2) g/dL Albumin (3.5-5.0) g/dL Amylase (30-110) U/L Lipase (23-300) U/L Urine Color (YELLOW) Urine Appearance (CLEAR) Urine pH (5-6) Ur Specific [place] (1.005-1.025) Urine Protein (Negative) Urine Ketones (NEGATIVE) Urine Blood (0-5) Nash/ul Urine Nitrite (NEGATIVE) Urine Bilirubin (NEGATIVE) Urine Urobilinogen (0-1) mg/dL Ur Leukocyte Esterase (NEGATIVE) Urine WBC (Auto) (0-5) /HPF Urine RBC (Auto) (0-2) /HPF U Epithel Cells (Auto) (FEW) /HPF Urine Bacteria (Auto) (NEGATIVE) /HPF Urine Mucus (Auto) (NEGATIVE) /HPF Urine Culture Reflexed (NO) Urine Glucose (NEGATIVE) mg/dL - Progress Progress: improved Air Movement: good Blood Culture(s) Obtained: No Antibiotics given: No - Departure Departure Disposition: Home Clinical Impression: Hypertension Condition: Stable Critical Care Time: No Referrals: JERMAINE BREWSTER [Primary Care Provider] - Instructions: Malignant Hypertension (DC) Additional Instructions: Take your clonidine every 8 hours exactly and your metoprolol every 12 hours exactly
[2020-12-06] MEDS ORDERED: Catapres 0.1 MG ONE (16:44)
[2020-12-06 17:08] LABS: Appearance SLIGHTLY CLOUDY (CLEAR); Bacteria RARE /HPF (NEGATIVE); Bilirubin NEGATIVE (NEGATIVE); Blood NEGATIVE Ery/ul (0-5); Epithelial Cells RARE /HPF (FEW); Glucose NEGATIVE (NEGATIVE); Ketones NEGATIVE (NEGATIVE); Leukocyte Esterase LARGE (NEGATIVE); Mucus SLIGHT /HPF (NEGATIVE); Nitrite NEGATIVE (NEGATIVE); Protein,Urine Dip NEGATIVE (Negative); Specific Gravity 1.017 (1.005-1.025); Urobilinogen NEGATIVE mg/dL (0-1)
[2020-12-06] MEDS ORDERED: Ativan 0.5 MG PO ONE (18:22)
[2020-12-06] MEDS ORDERED: Ativan 1 MG ONE (18:26)
[2020-12-06 18:57] VITALS: BP 169/64; PULSE 46
--- NOTE | 2020-12-06 19:41 | XRAY ---
Indication: Intermittent hypo-and hypertension. Comparison: November 26, 2020. Portable chest limited as both lung apices not completely included. Visualized lungs remain hyperinflated and clear again with tiny right base calcified granuloma. Heart not enlarged. Bony thorax intact again with osteopenia, degenerative changes, and scoliosis. No new/acute abnormalities. Impression: Stable nonacute limited chest with chronic features.
== END 2020-12-06 18:57 | disposition home or self-care (01) ==
LOC: ED 13:49
DX: Z79.899 Other long term (current) drug therapy (principal); E78.00 Pure hypercholesterolemia, unspecified
CPT/HCPCS: 36000; 36415; 71045; 80053; 81001; 82150; 83690; 83735; 83880; 84484; 85025; 87077; 87086; 87186; 93005; 96360; 96361; 99284; A9270-GY

== ENCOUNTER 2020-12-11 19:10 | Observation (INO) | payer MEDICARE ==
--- NOTE | 2020-12-11 19:44 | ERPHSYRPT ---
- History of Present Illness Time Seen by Provider: 12/11/20 19:13 Source: patient, EMS Exam Limitations: no limitations Patient Subjective Stated Complaint: pt states "I have been having blood pressure problem and was started on a new medication." Triage Nursing Assessment: pt came into the er via ambulance; pt is axo x4; c/o HTN; states 2/10 to abd; pt states "I think my stomach hurts because I take all this medicine on a empty stomach."; pt states that she took hydralazine at 1725 for b/p of 202/91; pt states that she has not felt well all day due to elevated B/P; clear heart tone apical; clear lung sounds; strong radial and pedal pulses; no edema present to BLE; b/p 210/77 upon arrival; active bowel sounds in all quads; tenderness present to LLQ Physician History: 85 years old female with history of poorly controlled hypertension, GERD presented in the ER with chief complaint of elevated blood pressure all day today. She called her primary care and was given a prescription of hydralazine and she has taken 1 dose around 5:30 PM when her blood pressure was 202 and still elevated and decided to report in the ER. Patient denies any headache, visual symptoms, chest pain palpitations or shortness of breath. She does have acid reflux and have some burning sensation in the epigastric area but denies a ny sharp shooting pain on low back pain. Denies any lower extremity swelling or pain/weakness. Patient also report feeling weak fatigued and tired all day long with a shaking sensation and on EMS checked her blood sugar was 67. No fever or chills reported. Patient reports "I live alone and it makes me really anxious and scary with elevated blood pressure". Timing/Duration: today, constant, worse Severity: moderate Modifying Factors: Improves With: nothing Associated Symptoms: nausea, heartburn, No vomiting, No shortness of breath, No chest pain, No headaches, No loss of appetite, No malaise, No rash, No syncope, No seizure, No weakness Allergies/Adverse Reactions: amoxicillin [Amoxicillin] Allergy (Severe, Verified 12/11/20 19:11) Swelling of Tongue and Lips Penicillins Allergy (Severe, Verified 12/11/20 19:11) Swelling of Tongue and Lips Home Medications: [place]-3 Fatty Acids/Fish Oil [Fish Oil 1,000 mg Capsule] 1 each PO TID 03/05/17 [History] Omeprazole 20 MG [Prilosec 20 mg] 20 mg PO DAILY 03/05/17 [History] Tamsulosin HCl 0.4 mg [Flomax 0.4 MG] 0.4 mg PO DAILY 03/05/17 [History] Famotidine 20 mg [Pepcid 20 MG] 20 mg PO BID 10/09/19 [History] HydrALAzine HCL 25 MG TAB [Apresoline 25 MG TABLET] 25 mg PO TID 12/11/20 [History] Levofloxacin [Levaquin] 500 mg PO DAILY 12/11/20 [History] Hx Tetanus, Diphtheria Vaccination/Date Given: No Hx Influenza Vaccination/Date Given: Yes Hx Pneumococcal Vaccination/Date Given: Yes Travel Risk - International Travel Have you traveled outside of the country in past 3 weeks: No - Coronavirus Screening Are you exhibiting any of the following symptoms?: No Close contact with a COVID-19 positive Pt in past 14-21 Days: No - Vaccine Status Have you recieved a Covid-19 vaccination: Yes 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 - Vaccination Dates Date of 2cond Vaccination (if applicable): 07/2020 - Review of Systems Constitutional: Fatigue, Weakness Eyes: No Symptoms Ears, Nose, & Throat: No Symptoms Respiratory: No Symptoms Cardiac: No Symptoms Abdominal/Gastrointestinal: No Symptoms Genitourinary Symptoms: No Symptoms Musculoskeletal: No Symptoms Skin: No Symptoms Neurological: No Symptoms Psychological: No Symptoms Endocrine: No Symptoms Hematologic/Lymphatic: No Symptoms Immunological/Allergic: No Symptoms - Past Medical History Pertinent Past Medical History: Yes Neurological History: No Pertinent History ENT History: No Pertinent History Cardiac History: High Cholesterol, Hypertension Respiratory History: No Pertinent History Endocrine Medical History: No Pertinent History Musculoskeletal History: Other GI Medical History: Diverticulosis, GERD, Ulcer History: Other Psycho-Social History: No Pertinent History Female Reproductive Disorders: No Pertinent History Other Medical History: "takes flomax for bladder", sciatica. urinary hesitancy,. shingles - Past Surgical History Past Surgical History: Yes Neuro Surgical History: No Pertinent History Cardiac: No Pertinent History Respiratory: No Pertinent History Gastrointestinal: Appendectomy Genitourinary: No Pertinent History Musculoskeletal: No Pertinent History Female Surgical History: Hysterectomy Other Surgical History: COLONSCOPY - Social History Smoking Status: Former smoker Exposure to second hand smoke: No Drug Use: none Patient Lives Alone: Yes - Female History Hx Now: No - Nursing Vital Signs Nursing Vital Signs: Initial Vital Signs Temperature 97.6 F 12/11/20 19:14 Pulse Rate 74 12/11/20 19:14 Respiratory Rate 18 12/11/20 19:14 Blood Pressure 210/77 12/11/20 19:14 O2 Sat by Pulse Oximetry 99 12/11/20 19:14 Pain Scale Pain Intensity 2 - Physical Exam General Appearance: no apparent distress, alert, anxiety Eye Exam: PERRL/EOMI, eyes nml inspection Ears, Nose, Throat Exam: normal ENT inspection, TMs normal, pharynx normal Neck Exam: normal inspection, non-tender, supple, full range of motion Respiratory Exam: normal breath sounds, lungs clear Cardiovascular Exam: regular rate/rhythm, normal heart sounds Gastrointestinal/Abdomen Exam: soft, normal bowel sounds, No tenderness, No distention Back Exam: normal inspection, normal range of motion Extremity Exam: normal inspection, normal range of motion, pelvis stable Neurologic Exam: alert, oriented x 3, 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 as tested, nml cerebellar function, sensation nml, No motor deficits Skin Exam: normal color SpO2 Interpretation: normal SpO2: 99 O2 Delivery: Room Air - Course EKG Interpreted by Me: RATE ([id number]), Sinus Stanislaw, NORMAL AXIS, NORMAL INTERVALS, Non-specific ST Changes Ordered Tests: Active Orders 24 hr Category Date Time Status EKG-ER Only STAT Care 12/11/20 19:38 Active IV Insertion STAT Care 12/11/20 19:38 Active CHEST 1 VIEW (PORTABLE) Stat Exams 12/11/20 19:39 Taken HEAD WITHOUT CONTRAST [CT] Stat Exams 12/11/20 19:39 Taken BNP [NT PRO BNP] Stat Lab 12/11/20 18:00 Completed CBC W DIFF Stat Lab 12/11/20 19:38 Completed CMP Stat Lab 12/11/20 19:38 Completed CULTURE,URINE Stat Lab 12/11/20 22:05 Received MAGNESIUM Stat Lab 12/11/20 18:00 Completed TROPONIN Q3H Lab 12/11/20 19:45 Completed TROPONIN Q3H Lab 12/11/20 22:45 Ordered TROPONIN Q3H Lab 12/12/20 01:45 Ordered TROPONIN Q3H Lab 12/12/20 04:45 Ordered TROPONIN Q3H Lab 12/12/20 07:45 Ordered UA W/RFX UR CULTURE Stat Lab 12/11/20 22:05 Completed Transfer Order Routine Transfer 12/11/20 Ordered Medication Summary Generic Name Dose Route Start Last Admin Trade Name Mina PRN Reason Stop Dose Admin Potassium Chloride/Sodium Chloride 1,000 mls @ 75 mls/hr 12/11/20 21:45 0702/03 21:46 Sodium Chloride 0.9% W/ 20 Meq Kcl/Liter IV 01/10/21 21:44 75 mls/hr .[id number] BLANCA Administration Discontinued Medications Generic Name Dose Route Start Last Admin Trade Name Freq PRN Reason Stop Dose Admin Hydralazine HCl 10 mg 12/11/20 21:06 12/11/20 21:10 Apresoline 20 Mg/Ml Inj IV 12/11/20 21:07 10 mg STAT ONE Administration Hydralazine HCl Confirm 12/11/20 21:09 Apresoline 20 Mg/Ml Inj Administered 12/11/20 21:10 Dose 20 mg .ROUTE .STK-MED ONE Sodium Chloride Confirm 12/11/20 21:41 Sodium Chloride 0.9% 1000 Ml Administered 12/11/20 21:42 Dose 1,000 mls @ ud .ROUTE .STK-MED ONE Potassium Chloride Confirm 12/11/20 21:43 Potassium Chloride 20 Meq In Water 100ml Administered 12/11/20 21:44 Dose 100 mls @ ud IV .STK-MED ONE Ceftriaxone Sodium/Dextrose Confirm 12/11/20 22:17 Rocephin 1 Gm-D5w 50 Ml Bag Administered 12/11/20 22:18 Dose 1 g in 50 mls @ ud IV .STK-MED ONE Lab/Rad Data: Laboratory Result Diagrams 12/11/20 19:38 12/11/20 19:38 Laboratory Results 12/11/20 12/11/20 12/11/20 Range/Units 22:05 19:45 19:38 WBC (4.0-10.5) K/mm3 RBC (4.1-5.4) M/mm3 Hgb (12.0-16.0) gm/dl Hct (35-47) % MCV (78-100) fl MCH (26-32) pg MCHC (32-36) g/dl RDW (11.5-14.0) % Plt Count (150-450) K/mm3 MPV (7.5-11.0) fl Gran % (36.0-66.0) % Eos # (Auto) (0-0.5) Absolute Lymphs (auto) (1.0-4.6) Absolute Monos (auto) (0.0-1.3) Lymphocytes % (24.0-44.0) % Monocytes % (0.0-12.0) % Eosinophils % (0.00-5.0) % Basophils % (0.0-0.4) % Absolute Granulocytes (1.4-6.9) Basophils # (0-0.4) Sodium 138 (137-145) mmol/L Potassium 3.6 (3.5-5.1) mmol/L Chloride 100 (98-107) mmol/L Carbon Dioxide 21 L (22-30) mmol/L Anion Gap 19.6 H (5-15) MEQ/L BUN 20 H (7-17) mg/dL Creatinine 1.19 H (0.52-1.04) mg/dL Estimated GFR 45.9 ML/MIN Glucose 79 (74-106) mg/dL Calcium 9.9 (8.4-10.2) mg/dL Magnesium (1.6-2.3) mg/dL Total Bilirubin 0.70 (0.2-1.3) mg/dL AST 38 H (14-36) U/L ALT 29 (0-35) U/L Alkaline Phosphatase 76 (38-126) U/L Troponin I 0.028 (0.000-0.034) ng/mL NT-Pro-B Natriuret Pep (0-1800) pg/mL Serum Total Protein 7.3 (6.3-8.2) g/dL Albumin 4.4 (3.5-5.0) g/dL Urine Color YELLOW (YELLOW) Urine Appearance CLOUDY (CLEAR) Urine pH 6.0 (5-6) Ur Specific [place] 1.017 (1.005-1.025) Urine Protein NEGATIVE (Negative) Urine Ketones SMALL (NEGATIVE) Urine Blood NEGATIVE (0-5) Nash/ul Urine Nitrite NEGATIVE (NEGATIVE) Urine Bilirubin NEGATIVE (NEGATIVE) Urine Urobilinogen NEGATIVE (0-1) mg/dL Ur Leukocyte Esterase LARGE (NEGATIVE) Urine WBC (Auto) 51-100 (0-5) /HPF Urine RBC (Auto) 6-10 (0-2) /HPF U Hyaline Cast (Auto) 0-2 (0-2) /LPF U Epithel Cells (Auto) FEW (FEW) /HPF Urine Bacteria (Auto) RARE (NEGATIVE) /HPF Urine Mucus (Auto) SLIGHT (NEGATIVE) /HPF Urine Culture Reflexed YES (NO) Urine Glucose NEGATIVE (NEGATIVE) mg/dL 12/11/20 12/11/20 Range/Units 19:38 18:00 WBC 7.7 (4.0-10.5) K/mm3 RBC 4.34 (4.1-5.4) M/mm3 Hgb 13.9 (12.0-16.0) gm/dl Hct 42.5 (35-47) % MCV 97.9 (78-100) fl MCH 32.0 (26-32) pg MCHC 32.7 (32-36) g/dl RDW 15.3 H (11.5-14.0) % Plt Count 261 (150-450) K/mm3 MPV 10.1 (7.5-11.0) fl Gran % 67.1 H (36.0-66.0) % Eos # (Auto) 0.06 (0-0.5) Absolute Lymphs (auto) 1.77 (1.0-4.6) Absolute Monos (auto) 0.68 (0.0-1.3) Lymphocytes % 23.0 L (24.0-44.0) % Monocytes % 8.8 (0.0-12.0) % Eosinophils % 0.8 (0.00-5.0) % Basophils % 0.3 (0.0-0.4) % Absolute Granulocytes 5.16 (1.4-6.9) Basophils # 0.02 (0-0.4) Sodium (137-145) mmol/L Potassium (3.5-5.1) mmol/L Chloride (98-107) mmol/L Carbon Dioxide (22-30) mmol/L Anion Gap (5-15) MEQ/L BUN (7-17) mg/dL Creatinine (0.52-1.04) mg/dL Estimated GFR ML/MIN Glucose (74-106) mg/dL Calcium (8.4-10.2) mg/dL Magnesium 1.7 (1.6-2.3) mg/dL Total Bilirubin (0.2-1.3) mg/dL AST (14-36) U/L ALT (0-35) U/L Alkaline Phosphatase (38-126) U/L Troponin I (0.000-0.034) ng/mL NT-Pro-B Natriuret Pep 2100 H (0-1800) pg/mL Serum Total Protein (6.3-8.2) g/dL Albumin (3.5-5.0) g/dL Urine Color (YELLOW) Urine Appearance (CLEAR) Urine pH (5-6) Ur Specific [place] (1.005-1.025) Urine Protein (Negative) Urine Ketones (NEGATIVE) Urine Blood (0-5) Nash/ul Urine Nitrite (NEGATIVE) Urine Bilirubin (NEGATIVE) Urine Urobilinogen (0-1) mg/dL Ur Leukocyte Esterase (NEGATIVE) Urine WBC (Auto) (0-5) /HPF Urine RBC (Auto) (0-2) /HPF U Hyaline Cast (Auto) (0-2) /LPF U Epithel Cells (Auto) (FEW) /HPF Urine Bacteria (Auto) (NEGATIVE) /HPF Urine Mucus (Auto) (NEGATIVE) /HPF Urine Culture Reflexed (NO) Urine Glucose (NEGATIVE) mg/dL - Progress Progress: improved, re-examined Progress Note: 12/11/20 21:36 85 years old is evaluated for uncontrolled hypertension with generalized weakness and shakiness. Patient blood sugar was in 60s on EMS arrival. Patient has nonfocal neuro exam. I have obtained CT head which showed old lacunar infarct without any acute or subacute infarct. No other acute findings on CT. She is given hydralazine and blood pressure is improving. Negative initial troponins. EKG showed sinus rhythm with bradycardia but no acute ST elevations. She has elevated gap and mildly elevated creatinine. We'll give her gentle hydration. Chest x-ray negative for any acute cardiopulmonary findings reviewed by me, official report is pending. Patient is very anxious. She needs adjustment in dose of blood pressure medications. Discussed with Dr. Brewster and patient is being admitted for observation. 12/11/20 22:40 Has have UTI but patient has been taking Levaquin and has only 2 doses so far. I would continue with Levaquin for now as it is too early to change/switch to a different antibiotic. Discussed with : Olivia Will see patient in: hospital (observation) Counseled pt/family regarding: lab results, diagnosis, rad results - Departure Departure Disposition: Observation Clinical Impression: Hypertensive urgency, Dehydration, General weakness, Acute UTI Condition: Stable Critical Care Time: Yes Critical Care Time(excluding separately billable procedures): Critical 30-74 mins Referrals: JERMAINE BREWSTER [Primary Care Provider] -
[2020-12-11 19:46] LABS: Absolute Neutrophil Ct (ANC) 5.16 (1.4-6.9); BASOPHIL % 0.3 % (0.0-0.4); Basophil (Absolute #) 0.02 (0-0.4); Eosinophil % 0.8 % (0.00-5.0); Eosinophil (Absolute #) 0.06 (0-0.5); Hematocrit 42.5 % (35-47); Hemoglobin 13.9 gm/dl (12.0-16.0); Lymphocyte (Absolute #) 1.77 (1.0-4.6); Mean Cell Volume 97.9 fl (78-100); Mean Corpuscular Hgb Concent. 32.7 g/dl (32-36); Mean Platelet Volume 10.1 fl (7.5-11.0); Monocyte (Absolute #) 0.68 (0.0-1.3); Monocytes % 8.8 % (0.0-12.0); Neutrophil % 67.1 % (36.0-66.0); Platelet Count 261 K/mm3 (150-450); Red Blood Count 4.34 M/mm3 (4.1-5.4); Red Cell Distribution Width 15.3 % (11.5-14.0); White Blood Count 7.7 K/mm3 (4.0-10.5)
[2020-12-11 19:50] LABS: ALBUMIN 4.4 g/dL (3.5-5.0); ANION GAP 19.6 MEQ/L (5-15); BILIRUBIN,TOTAL 0.7 mg/dL (0.2-1.3); Calcium 9.9 mg/dL (8.4-10.2); Creatinine 1 1.19 mg/dL (0.52-1.04); EST GLOMERULAR FILTRATION RATE 45.9 ML/MIN; Potassium 3.6 mmol/L (3.5-5.1); Total Protein 7.3 g/dL (6.3-8.2)
[2020-12-11 21:01] LABS: MAGNESIUM 1.7 mg/dL (1.6-2.3)
[2020-12-11] MEDS ORDERED: APRESOLINE 20 MG/ML INJ IV ONE (21:06)
[2020-12-11] MEDS ORDERED: APRESOLINE 20 MG/ML INJ ONE (21:09)
[2020-12-11] MEDS ORDERED: Sodium Chloride 0.9% 1000 ML 0 ML ONE (21:41)
[2020-12-11] MEDS ORDERED: POTASSIUM CHLORIDE 20 mEq IN WATER 100ML 0 ML IV ONE (21:43)
[2020-12-11] MEDS ORDERED: Sodium Chloride 0.9% W/ 20 mEq KCl/LITER 1,000 ML IV ONE (21:44)
[2020-12-11] MEDS ORDERED: Sodium Chloride 0.9% W/ 20 mEq KCl/LITER 1,000 ML IV SCH (21:45)
[2020-12-11 22:13] LABS: Appearance CLOUDY (CLEAR); Bacteria RARE /HPF (NEGATIVE); Bilirubin NEGATIVE (NEGATIVE); Blood NEGATIVE Ery/ul (0-5); Epithelial Cells FEW /HPF (FEW); Glucose NEGATIVE (NEGATIVE); Hyaline Casts 0-2 /LPF (0-2); Ketones SMALL (NEGATIVE); Leukocyte Esterase LARGE (NEGATIVE); Mucus SLIGHT /HPF (NEGATIVE); Nitrite NEGATIVE (NEGATIVE); Protein,Urine Dip NEGATIVE (Negative); Specific Gravity 1.017 (1.005-1.025); Urobilinogen NEGATIVE mg/dL (0-1); WBC 51-100 /HPF (0-5)
[2020-12-11] MEDS ORDERED: ROCEPHIN 1 Gm-D5w 50 ml Bag** 0 G/0 ML IVPB IV ONE (22:17)
[2020-12-11] MEDS ORDERED: APRESOLINE 20 MG/ML INJ IV PRN (23:20)
[2020-12-11] MEDS ORDERED: Pepcid 20 MG VIAL IV SCH (23:20)
[2020-12-11] MEDS ORDERED: Zofran 4 MG/2 ML VIAL IV PRN (23:20)
[2020-12-11] MEDS ORDERED: DUONEB 0.5-3 MG/3 ml Neb IH PRN (23:20)
[2020-12-11] MEDS ORDERED: TYLENOL 325 MG PO PRN (23:20)
[2020-12-11] MEDS ORDERED: PROVENTIL 2.5 MG/3 ML NEB IH PRN (23:20)
[2020-12-12] MEDS: Dextrose 5% -0.45 NaCl 1000 ML 1,000 ML IV SCH ×2 (01:19→16:59)
[2020-12-12 05:31] LABS: Absolute Neutrophil Ct (ANC) 4.75 (1.4-6.9); BASOPHIL % 0.3 % (0.0-0.4); Basophil (Absolute #) 0.02 (0-0.4); Eosinophil % 0.5 % (0.00-5.0); Eosinophil (Absolute #) 0.03 (0-0.5); Hematocrit 37.4 % (35-47); Hemoglobin 12.3 gm/dl (12.0-16.0); Lymphocyte (Absolute #) 1.14 (1.0-4.6); Lymphocytes % 17.4 % (24.0-44.0); Mean Cell Volume 98.7 fl (78-100); Mean Corpuscular Hemoglobin 32.5 pg (26-32); Mean Corpuscular Hgb Concent. 32.9 g/dl (32-36); Mean Platelet Volume 9.7 fl (7.5-11.0); Monocytes % 9.2 % (0.0-12.0); Neutrophil % 72.6 % (36.0-66.0); Platelet Count 237 K/mm3 (150-450); Red Blood Count 3.79 M/mm3 (4.1-5.4); Red Cell Distribution Width 15.2 % (11.5-14.0); White Blood Count 6.5 K/mm3 (4.0-10.5)
[2020-12-12 05:40] LABS: ALBUMIN 3.5 g/dL (3.5-5.0); ANION GAP 15.6 MEQ/L (5-15); BILIRUBIN,TOTAL 0.5 mg/dL (0.2-1.3); Creatinine 1 1.02 mg/dL (0.52-1.04); EST GLOMERULAR FILTRATION RATE 54.9 ML/MIN; Potassium 3.6 mmol/L (3.5-5.1); Total Protein 6.1 g/dL (6.3-8.2)
[2020-12-12] MEDS ORDERED: Catapres 0.1 MG PO PRN (07:17)
--- NOTE | 2020-12-12 08:00 | HP ---
CHIEF COMPLAINT: Lightheaded, dizzy and high blood pressure. HISTORY OF PRESENT ILLNESS: The patient is an 85 year-old white female who was in the office earlier this week with symptoms of not feeling well. We checked the urine and she was found to have a positive urinary tract infection that culture grew back Pseudomonas Aeruginosa. It was sensitive to Levaquin that she has been on orally for the past couple of days but despite that her white count in the urine was 50 to 100. The patient had otherwise not been feeling well. She had been fairly hyponatremic in the last few months but as she begin feeling bad and her oral intake of fluids had decreased her sodium level is now normal but it usually runs in the 120's. The patient otherwise got hypoglycemic with a sugar of around 62 with labs on admission to the emergency room. The patient's blood pressure was elevated at home. I sent her in a prescription for hydralazine for which she took one tablet. She became quite concerned about her blood pressure being elevated and this combination caused her to present to the emergency room. PAST MEDICAL/SURGICAL HISTORY: Hypertension, hyponatremia and current urinary tract infection. HOME MEDICATIONS: Currently of omeprazole 20 mg a day, Tamsulosin 0.4 mg a day, famotidine 20 mg a day, hydralazine 25 mg every six hours PRN for systolic blood pressure greater than 180, Levaquin 500 mg a day. ALLERGIES: PENICILLIN. AMOXICILLIN. PHYSICAL EXAMINATION: Her temperature on admission was 97.6F, pulse 74, respiratory rate 18 and blood pressure 210/77. O2 saturation was 99% on room air. HEENT: Normocephalic, atraumatic. Pupils equal round reactive to light. Extraocular movements intact. Oropharynx is slightly dry. NECK: Supple without lymphadenopathy, thyromegaly or JVD. CHEST: Clear to auscultation. HEART: Regular rate and rhythm without murmurs, rubs or gallops. ABDOMEN: Soft. There is minimal tenderness in the suprapubic area. No masses were felt. EXTREMITIES: Without cyanosis, clubbing or edema. NEUROLOGIC: The patient is alert and oriented x3 with no focal deficits noted. LAB DATA AND TESTS: The patient's laboratory studies have shown a slight elevation of her troponin up to 0.028. Her CBC showed normal white count 7,700, hemoglobin 13.9, PLT count 261,000. Her sugar after some treatment was 79. BUN 20, creatinine 1.19, sodium 138. Potassium is normal. Liver enzymes were essentially normal as well. ProBNP is 2100. Magnesium level 1.7. Again, her urine specific gravity 1.017, large leukocytes at 51-100 per high power field. The culture again showed Pseudomonas Aeruginosa sensitive to Levaquin. She had a COVID test which was negative. The patient did have a head CT performed in the emergency room which was compared to 05/25/2019. The patient was showed remote lacunar infarct in the left periventricular white matter area otherwise no acute findings. The patient's EKG showed a normal sinus rhythm with left axis deviation and otherwise appeared to be no acute changes. ASSESSMENT: The patient with a urinary tract infection which she has been admitted for IV Levaquin. She is being treated for her hypertension with home medications plus a new medication of hydralazine on a PRN basis. She was also fairly recently placed on clonidine 0.1 mg every 8 hours, metoprolol 25 mg a day and Tamsulosin 0.4 mg a day. We will continue to monitor her over the next 24 hours to keep an eye on her blood pressures and to be sure that she eats well enough to keep her sugar up.
[2020-12-12] MEDS: Apresoline 25 MG TABLET PO PRN (08:24)
--- NOTE | 2020-12-12 08:46 | XRAY ---
Indication: Uncontrolled hypertension. Comparison: December 06, 2020. Portable chest unchanged again hyperinflated and clear with again incidental right base calcified granuloma. Heart not enlarged. No new/acute cardiopulmonary abnormalities.
--- NOTE | 2020-12-12 08:48 | XRAY ---
Indication: Uncontrolled hypertension. Multiple contiguous axial images obtained through the head without contrast. Comparison: May 25, 2019. There remains age-appropriate global atrophy and minimal periventricular degenerative micro-ischemia. Left mid to anterior periventricular white matter demonstrates at least 2 tiny foci of remote lacunar infarcts. Stable left occipital lobe benign microcalcification. No acute intracranial hemorrhage, abnormal extra-axial fluid collection, or mass effect. Fourth ventricle is midline without hydrocephalus. Bony calvarium intact. Visualized paranasal sinuses and mastoid air cells are clear. 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
[2020-12-12] MEDS: Apresoline 25 MG TABLET PO SCH ×3 (08:51→21:43)
[2020-12-12] MEDS: Pepcid 20 MG PO SCH ×2 (08:51→21:43)
[2020-12-12] MEDS: Lopressor 25MG Tab PO SCH ×2 (08:51→21:43)
[2020-12-12] MEDS: Protonix 40MG Tablet PO SCH (08:51)
[2020-12-12] MEDS: Flomax 0.4 MG PO SCH (08:51)
[2020-12-12] MEDS: ECOTRIN 81 MG PO SCH (08:51)
[2020-12-12] MEDS: Levofloxacin 500MG/100ML D5W 500 MG/100 ML BAG IV SCH (08:53)
[2020-12-12] MEDS ORDERED: NON-FORMULARY ITEM (Omeprazole 20 Mg [Prilosec 20 Mg] 20 MG) PO SCH (10:00)
[2020-12-13 04:12] VITALS: O2SAT 98
[2020-12-13] MEDS: Apresoline 25 MG TABLET PO PRN (04:29)
[2020-12-13] MEDS: Dextrose 5% -0.45 NaCl 1000 ML 1,000 ML IV SCH (04:31)
[2020-12-13 06:17] LABS: Absolute Neutrophil Ct (ANC) 5.07 (1.4-6.9); BASOPHIL % 0.3 % (0.0-0.4); Basophil (Absolute #) 0.02 (0-0.4); Eosinophil % 1.3 % (0.00-5.0); Hemoglobin 12.5 gm/dl (12.0-16.0); Lymphocyte (Absolute #) 1.35 (1.0-4.6); Lymphocytes % 18.1 % (24.0-44.0); Mean Cell Volume 99.5 fl (78-100); Mean Corpuscular Hemoglobin 31.9 pg (26-32); Mean Corpuscular Hgb Concent. 32.1 g/dl (32-36); Mean Platelet Volume 10.1 fl (7.5-11.0); Monocytes % 12.1 % (0.0-12.0); Neutrophil % 68.2 % (36.0-66.0); Platelet Count 245 K/mm3 (150-450); Red Blood Count 3.92 M/mm3 (4.1-5.4); Red Cell Distribution Width 15.5 % (11.5-14.0); White Blood Count 7.4 K/mm3 (4.0-10.5)
[2020-12-13 06:33] LABS: ALBUMIN 3.4 g/dL (3.5-5.0); BILIRUBIN,TOTAL 0.4 mg/dL (0.2-1.3); Calcium 8.8 mg/dL (8.4-10.2); Creatinine 1 1.08 mg/dL (0.52-1.04); EST GLOMERULAR FILTRATION RATE 51.4 ML/MIN; Potassium 3.4 mmol/L (3.5-5.1); Total Protein 5.9 g/dL (6.3-8.2)
[2020-12-13 06:57] VITALS: BP 169/46; PULSE 59
[2020-12-13] MEDS: Protonix 40MG Tablet PO SCH (09:04)
[2020-12-13] MEDS: Apresoline 25 MG TABLET PO SCH (09:04)
[2020-12-13] MEDS: ECOTRIN 81 MG PO SCH (09:04)
[2020-12-13] MEDS: Levofloxacin 500MG/100ML D5W 500 MG/100 ML BAG IV SCH (09:04)
[2020-12-13] MEDS: Lopressor 25MG Tab PO SCH (09:05)
[2020-12-13] MEDS: Flomax 0.4 MG PO SCH (09:05)
[2020-12-13] MEDS: Pepcid 20 MG PO SCH (09:05)
--- NOTE | 2020-12-13 09:20 | PCM.DS ---
Discharge Summary Date of Admission: 12/11/20 23:13 Admitting Physician: JERMAINE MERAZ Primary Care Provider: JERMAINE MERAZ Allergies Allergies amoxicillin [Amoxicillin] Allergy (Severe, Verified 12/11/20 19:11) Swelling of Tongue and Lips Penicillins Allergy (Severe, Verified 12/11/20 19:11) Swelling of Tongue and Lips Hospital Summary - Hospital Course Hospital Course: Chief Complaint Diagnosis dehydration, HBP Allergies Allergy/AdvReac Type Severity Reaction Status Date / Time amoxicillin [Amoxicillin] Allergy Severe Swelling Verified 12/11/20 19:11 of Tongue and Lips Penicillins Allergy Severe Swelling Verified 12/11/20 19:11 of Tongue and Lips Vital Signs (Last 24 hours) Temp Pulse Resp BP Pulse Ox 12/13/20 06:56 98.4 F 59 L 16 169/46 98 12/13/20 05:08 63 22 179/70 12/13/20 04:00 98.4 F 55 L 18 177/73 98 12/13/20 00:00 98.6 F 66 19 144/66 96 12/12/20 20:25 95 12/12/20 19:49 98.1 F 75 18 143/65 97 12/12/20 16:00 98.5 F 74 16 166/73 96 12/12/20 12:00 98.0 F 72 18 190/94 96 Home Medications Medication Instructions Recorded Confirmed Last Taken Type HydrALAzine HCL 25 MG TAB 25 mg PO TID 12/11/20 12/11/20 12/10/20 History [Apresoline 25 MG TABLET] Aspirin EC 81 mg [Ecotrin 81 81 mg PO DAILY #30 tablet.ec 12/13/20 Unknown Rx mg] Clonidine HCl 0.1 mg [Catapres 0.1 mg PO Q12H PRN PRN #10 tablet 12/13/20 12/11/20 12/10/20 Rx 0.1 MG] Levofloxacin [Levaquin] 500 mg PO DAILY 7 Days #7 12/13/20 12/11/20 12/10/20 Rx Current Medications Generic Name Dose Route Start Last Admin Trade Name Freq PRN Reason Stop Dose Admin Acetaminophen 650 mg 12/11/20 23:20 12/12/20 08:24 Tylenol 325 Mg PO 01/10/21 23:19 650 mg Q4H PRN PRN Administration PAIN AND/OR FEVER Aspirin 81 mg 12/12/20 10:00 12/13/20 09:04 Ecotrin 81 Mg PO 01/11/21 09:59 81 mg DAILY BLANCA Administration Clonidine 0.1 mg 12/12/20 07:17 Catapres 0.1 Mg PO 01/11/21 07:16 Q12H PRN PRN HYPERTENSION Famotidine 20 mg 12/12/20 10:00 12/13/20 09:05 Pepcid 20 Mg PO 01/11/21 09:59 20 mg BID BLANCA Administration Hydralazine HCl 25 mg 12/12/20 07:09 12/13/20 04:29 Apresoline 25 Mg Tablet PO 01/11/21 07:14 25 mg Q6H PRN Administration hypertension Hydralazine HCl 25 mg 12/12/20 10:00 12/13/20 09:04 Apresoline 25 Mg Tablet PO 01/11/21 09:59 25 mg TID BLANCA Administration Dextrose/Sodium Chloride 1,000 mls @ 75 mls/hr 12/11/20 23:20 12/13/20 04:31 Dextrose 5% -0.45 Nacl 1000 Ml IV 01/10/21 23:19 75 mls/hr .[id number] BLANCA Administration Levofloxacin/Dextrose 500 mg in 100 mls @ 100 mls/hr 12/12/20 10:00 12/13/20 09:04 Levofloxacin 500mg/100ml D5w IV 01/11/21 09:59 100 mls/hr Q24H10 BLANCA Administration Metoprolol Tartrate 25 mg 12/12/20 10:00 12/13/20 09:05 Lopressor 25mg Tab PO 01/11/21 09:59 25 mg BID BLANCA Administration Ondansetron HCl 4 mg 12/11/20 23:20 12/12/20 02:44 Zofran 4 Mg/2 Ml Vial IV 01/10/21 23:19 4 mg Q6H PRN PRN Administration NAUSEA/VOMITING Pantoprazole Sodium 40 mg 12/12/20 10:00 12/13/20 09:04 Protonix 40mg Tablet PO 01/11/21 09:59 40 mg DAILY BLANCA Administration Tamsulosin HCl 0.4 mg 12/12/20 10:00 12/13/20 09:05 Flomax 0.4 Mg PO 01/11/21 09:59 0.4 mg DAILY BLANCA Administration Discontinued Medications Generic Name Dose Route Start Last Admin Trade Name Freq PRN Reason Stop Dose Admin Albuterol Sulfate 2.5 mg 12/11/20 23:20 Proventil 2.5 Mg/3 Ml Neb IH 01/10/21 23:19 Q2H PRN PRN SHORTNESS OF BREATH/WHEEZING Famotidine 20 mg 12/11/20 23:20 12/12/20 01:18 Pepcid 20 Mg Vial IV 01/10/21 23:19 20 mg Q12HT BLANCA Administration Hydralazine HCl 10 mg 12/11/20 21:06 12/11/20 21:10 Apresoline 20 Mg/Ml Inj IV 12/11/20 21:07 10 mg STAT ONE Administration Hydralazine HCl Confirm 12/11/20 21:09 Apresoline 20 Mg/Ml Inj Administered 12/11/20 21:10 Dose 20 mg .ROUTE .STK-MED ONE Hydralazine HCl 10 mg 12/11/20 23:20 Apresoline 20 Mg/Ml Inj IV 01/10/21 23:19 Q4H PRN PRN HYPERTENSION Potassium Chloride/Sodium Chloride 1,000 mls @ 75 mls/hr 12/11/20 21:45 12/11/20 21:46 Sodium Chloride 0.9% W/ 20 Meq Kcl/Liter IV 01/10/21 21:44 75 mls/hr .[id number] BLANCA Administration Sodium Chloride Confirm 12/11/20 21:41 Sodium Chloride 0.9% 1000 Ml Administered 12/11/20 21:42 Dose 1,000 mls @ ud .ROUTE .STK-MED ONE Potassium Chloride Confirm 12/11/20 21:43 Potassium Chloride 20 Meq In Water 100ml Administered 12/11/20 21:44 Dose 100 mls @ ud IV .STK-MED ONE Ceftriaxone Sodium/Dextrose Confirm 12/11/20 22:17 Rocephin 1 Gm-D5w 50 Ml Bag Administered 12/11/20 22:18 Dose 1 g in 50 mls @ ud IV .STK-MED ONE Potassium Chloride/Sodium Chloride Confirm 12/11/20 21:44 Sodium Chloride 0.9% W/ 20 Meq Kcl/Liter Administered 12/11/20 21:45 Dose 1,000 mls @ ud IV .STK-MED ONE Intake & Output (Last 24 hours) 12/10/20 12/11/20 12/12/20 12/13/20 11:59 11:59 11:59 11:59 Intake Total 120 2484 Output Total 500 Balance 120 1984 Weight 127 kg 60.3 kg Microbiology Results (Last 24 hours) 12/11/20 22:05 Urine, Void Urine Culture - Final <10K NORMAL SKIN RENEE PROBABLE SKIN CONTAMINANT Laboratory Results (Last 24 hours) 12/13/20 12/13/20 12/12/20 05:20 05:20 22:14 WBC 7.4 RBC 3.92 L Hgb 12.5 Hct 39.0 MCV 99.5 MCH 31.9 MCHC 32.1 RDW 15.5 H Plt Count 245 MPV 10.1 Gran % 68.2 H Eos # (Auto) 0.10 Absolute Lymphs (auto) 1.35 Absolute Monos (auto) 0.90 Lymphocytes % 18.1 L Monocytes % 12.1 H Eosinophils % 1.3 Basophils % 0.3 Absolute Granulocytes 5.07 Basophils # 0.02 Sodium 136 L Potassium 3.4 L Chloride 105 Carbon Dioxide 23 Anion Gap 12.0 BUN 18 H Creatinine 1.08 H Estimated GFR 51.4 Glucose 118 H POC Glucometer 116 H Hemoglobin A1c Calcium 8.8 Total Bilirubin 0.40 AST 30 ALT 21 Alkaline Phosphatase 59 Troponin I Serum Total Protein 5.9 L Albumin 3.4 L 12/12/20 12/12/20 15:30 12:42 WBC RBC Hgb Hct MCV MCH MCHC RDW Plt Count MPV Gran % Eos # (Auto) Absolute Lymphs (auto) Absolute Monos (auto) Lymphocytes % Monocytes % Eosinophils % Basophils % Absolute Granulocytes Basophils # Sodium Potassium Chloride Carbon Dioxide Anion Gap BUN Creatinine Estimated GFR Glucose POC Glucometer Hemoglobin A1c 4.93 Calcium Total Bilirubin AST ALT Alkaline Phosphatase Troponin I 0.047 H* Serum Total Protein Albumin Orders (Last 24 hours) Category Date Time Status CBC W DIFF AM.LAB Lab 12/13/20 05:20 Completed CMP AM.LAB Lab 12/13/20 05:20 Completed HEMOGLOBIN A1C Urgent Lab 12/12/20 15:30 Completed POCT GLUCOSE Stat Lab 12/12/20 22:14 Completed TROPONIN Routine Lab 12/12/20 12:42 Completed Aspirin EC 81 mg [Ecotrin 81 mg] Med 12/12/20 10:00 Active 81 mg PO DAILY Famotidine 20 mg [Pepcid 20 MG] Med 12/12/20 10:00 Active 20 mg PO BID HydrALAzine HCL 25 MG TAB [Apresoline 25 MG TABLET Med 12/12/20 10:00 Active *] 25 mg PO TID Levofloxacin [Levofloxacin 500MG/100ML D5W] Med 12/12/20 10:00 Active 500 mg in 100 ml IV Q24H10 Metoprolol Tartrate 25 mg [Lopressor 25MG Tab] Med 12/12/20 10:00 Active 25 mg PO BID PANTOPRAZOLE 40 mg Tablet [Protonix 40MG Tablet] Med 12/12/20 10:00 Active 40 mg PO DAILY Tamsulosin HCl 0.4 mg [Flomax 0.4 MG] Med 12/12/20 10:00 Active 0.4 mg PO DAILY Patient Care Notes (Last 24 hours) 12/13/20 05:09 Nursing Note by Afshan Vences Rechecked patients B/P 30min post Apresoline. 179/70 HR63. Blood pressure is coming down. Will continue to monitor. Initialized on 12/13/20 05:09 - END OF NOTE 12/13/20 04:34 Nursing Note by Afshan Vences Rechecked patients blood pressure to verify. Got 198/78-HR58. PRN Apresoline given as ordered for >180 SYSTOLIC Initialized on 12/13/20 04:34 - END OF NOTE 12/12/20 18:17 Nursing Note by Iman Shafer will accept pt they are expecting her on 12/13/20 Initialized on 12/12/20 18:17 - END OF NOTE 12/12/20 14:41 Case Management Note by Tiki Pettit PATIENT AGREEABLE TO GO TO [facility] IF THEY ARE ABLE TO ACCEPT HER Initialized on 12/12/20 14:41 - END OF NOTE 12/12/20 14:34 Case Management Note by Tiki Pettit S/W [facility]- THEY WILL NOT HAVE A BED UNTIL TUESDAY. PATIENT IN OBS, NOT MTG IN PATIENT CRITERIA - LIKELY DC TOMORROW. THEY WOULD LIKE TO GO AHEAD AND HAVE REFERRAL SENT TO [facility] IN [facility] UNTIL THEY ARE ABLE TO GET HER CLOSER TO THEM. REFERRAL FAXED AT THIS TIME. Initialized on 12/12/20 14:34 - END OF NOTE 12/12/20 14:27 Case Management Note by Tiki Pettit PATIENT'S HOME HEALTHCARE NURSE NOTIFIED THIS NURSE THAT FAMILY IS LOOKING INTO SNF PLACEMENT NEAR THEM. S/W [id number] DAVIAN-SHE WOULD LIKE PATIENT TO GO TO [facility] IN [place]. [place]AN NOTIFIED. SHE WILL SEND REFERRAL. Initialized on 12/12/20 14:27 - END OF NOTE 12/12/20 13:46 Nursing Note by Natalie Aguilar called critical troponin to Dr Carson nurse Initialized on 12/12/20 13:46 - END OF NOTE 12/12/20 13:15 Case Management Note by Tiki Pettit S/W NURY AT [facility]. SHE NOTIFIED OF CONCERNS LISTED IN PREVIOUS NOTE. SHE WILL NOTIFY PATIENT'S NURSE. Initialized on 12/12/20 13:15 - END OF NOTE 12/12/20 12:32 Case Management Note by Tiki Pettit PATIENT REPORTS SHE HAS A FAMILY MEMBER THAT WILL DO HER GROCERY SHOPPING BUT SHE DOES NOT LIKE TO BOTHER HER SO SHE HAS BEEN EATING LESS THAN SHE SHOULD. PATIENT WAS ENCOURAGED TO LET THIS FAMILY MEMBER KNOW WHEN SHE NEEDS FOOD RATHER THAN GOING WITHOUT- SHE VERIFIED UNDERSTANDING. PATIENT ALSO GIVEN INFO ON MEALS ON WHEELS WHICH SHE WOULD QUALIFY FOR AND NOTIFIED THAT [employer] DELIVERS GROCERIES WELL. SHE VERIFIED UNDERSTANDING OF INFORMATION GIVEN. PATIENT REPORTS SHE NEEDS NEW CLOTHING SHE HAS LOST WEIGHT AND HER CLOTHES NO LONGER FIT. PATIENT STATES SHE HAS NOTIFIED HER FAMILY IN [facility] BUT DOESN'T WANT TO BE A BOTHER. ENCOURAGED AGAIN TO LET HER FAMILY KNOW HER NEEDS. SHE REPORTS THEY ARE WORKING ON GETTING HER IN TO AN ASSISTED LIVING IN [facility] NEAR THEM. PATIENT USES [facility] FOR TRANSPORTATION. SHE WAS GIVEN INFORMATION ON [facility]. WILL TRY TO CONTINUE TO REACH OUT TO HHC TO NOTIFY THEM OF ABOVE ISSUES SO THEY ARE AWARE Initialized on 12/12/20 12:32 - END OF NOTE 12/12/20 12:24 Case Management Note by Tiki Pettit PATIENT HAS HHC WITH [facility]. ATTEMPTED MULTIPLE TIMES TO NOTIFY THEM PATIENT IS HERE. THEY WILL NEED NOTIFIED WHEN PATIENT DISCHARGES [facility] AT [phone]. THEY WILL NEED FAXED THE DC INSTRUCTIONS, DC MED LIST, AND DC SUMMARY (IF AVAILABLE) TO [phone] Initialized on 12/12/20 12:24 - END OF NOTE - Vitals & Intake/Output Vital Signs: Vital Signs Temperature 98.4 F 12/13/20 06:56 Pulse Rate 59 L 12/13/20 06:56 Respiratory Rate 16 12/13/20 06:56 Blood Pressure 169/46 12/13/20 06:56 O2 Sat by Pulse Oximetry 98 12/13/20 06:56 Intake & Output: Intake & Output 12/10/20 12/11/20 12/12/20 12/13/20 11:59 11:59 11:59 11:59 Intake Total 120 2484 Output Total 500 Balance 120 1983 Weight 127 kg 60.3 kg - Lab Result Diagrams: 12/13/20 05:20 12/13/20 05:20 Lab Results-Last 24 Hrs: Lab Results-Last 24 Hours 12/12/20 12/12/20 12/12/20 Range/Units 12:42 15:30 22:14 WBC (4.0-10.5) K/mm3 RBC (4.1-5.4) M/mm3 Hgb (12.0-16.0) gm/dl Hct (35-47) % MCV (78-100) fl MCH (26-32) pg MCHC (32-36) g/dl RDW (11.5-14.0) % Plt Count (150-450) K/mm3 MPV (7.5-11.0) fl Gran % (36.0-66.0) % Eos # (Auto) (0-0.5) Absolute Lymphs (auto) (1.0-4.6) Absolute Monos (auto) (0.0-1.3) Lymphocytes % (24.0-44.0) % Monocytes % (0.0-12.0) % Eosinophils % (0.00-5.0) % Basophils % (0.0-0.4) % Absolute Granulocytes (1.4-6.9) Basophils # (0-0.4) Sodium (137-145) mmol/L Potassium (3.5-5.1) mmol/L Chloride (98-107) mmol/L Carbon Dioxide (22-30) mmol/L Anion Gap (5-15) MEQ/L BUN (7-17) mg/dL Creatinine (0.52-1.04) mg/dL Estimated GFR ML/MIN Glucose (74-106) mg/dL POC Glucometer 116 H (74 to 106) mg/dL Hemoglobin A1c 4.93 (4.5-6.0) % Calcium (8.4-10.2) mg/dL Total Bilirubin (0.2-1.3) mg/dL AST (14-36) U/L ALT (0-35) U/L Alkaline Phosphatase (38-126) U/L Troponin I 0.047 H* (0.000-0.034) ng/mL Serum Total Protein (6.3-8.2) g/dL Albumin (3.5-5.0) g/dL 12/13/20 12/13/20 Range/Units 05:20 05:20 WBC 7.4 (4.0-10.5) K/mm3 RBC 3.92 L (4.1-5.4) M/mm3 Hgb 12.5 (12.0-16.0) gm/dl Hct 39.0 (35-47) % MCV 99.5 (78-100) fl MCH 31.9 (26-32) pg MCHC 32.1 (32-36) g/dl RDW 15.5 H (11.5-14.0) % Plt Count 245 (150-450) K/mm3 MPV 10.1 (7.5-11.0) fl Gran % 68.2 H (36.0-66.0) % Eos # (Auto) 0.10 (0-0.5) Absolute Lymphs (auto) 1.35 (1.0-4.6) Absolute Monos (auto) 0.90 (0.0-1.3) Lymphocytes % 18.1 L (24.0-44.0) % Monocytes % 12.1 H (0.0-12.0) % Eosinophils % 1.3 (0.00-5.0) % Basophils % 0.3 (0.0-0.4) % Absolute Granulocytes 5.07 (1.4-6.9) Basophils # 0.02 (0-0.4) Sodium 136 L (137-145) mmol/L Potassium 3.4 L (3.5-5.1) mmol/L Chloride 105 (98-107) mmol/L Carbon Dioxide 23 (22-30) mmol/L Anion Gap 12.0 (5-15) MEQ/L BUN 18 H (7-17) mg/dL Creatinine 1.08 H (0.52-1.04) mg/dL Estimated GFR 51.4 ML/MIN Glucose 118 H (74-106) mg/dL POC Glucometer (74 to 106) mg/dL Hemoglobin A1c (4.5-6.0) % Calcium 8.8 (8.4-10.2) mg/dL Total Bilirubin 0.40 (0.2-1.3) mg/dL AST 30 (14-36) U/L ALT 21 (0-35) U/L Alkaline Phosphatase 59 (38-126) U/L Troponin I (0.000-0.034) ng/mL Serum Total Protein 5.9 L (6.3-8.2) g/dL Albumin 3.4 L (3.5-5.0) g/dL Micro Results-Entire Visit: Microbiology 12/11/20 22:05 Urine Culture - Final Urine, Void <10K NORMAL SKIN RENEE PROBABLE SKIN CONTAMINANT - Radiology Exams Ordered Rad Exams-Entire Visit: Radiology Procedures Category Date Time Status CHEST 1 VIEW (PORTABLE) Stat Exams 12/11/20 19:39 Completed HEAD WITHOUT CONTRAST [CT] Stat Exams 12/11/20 19:39 Completed - Procedures and Test Procedures and Tests throughout Hospitalization: Therapy Orders & Screens 12/11/20 23:20 Oxygen Nasal Cannula 2 lpm Comment: Discharge Exam General Appearance: no apparent distress, alert Neurologic Exam: alert, oriented x 3, cooperative, normal mood/affect, nml cerebellar function, sensation nml, No motor deficits Eye Exam: PERRL, EOMI, eyes nml inspection Ears, Nose, Throat Exam: normal ENT inspection, pharynx normal, moist mucous membranes Neck Exam: normal inspection, non-tender, supple, full range of motion Respiratory Exam: normal breath sounds, lungs clear, No respiratory distress Cardiovascular Exam: regular rate/rhythm, normal heart sounds Gastrointestinal/Abdomen Exam: soft, No tenderness, No mass Pelvic Exam: deferred Rectal Exam: deferred Back Exam: normal inspection, normal range of motion, No CVA tenderness, No v ertebral tenderness Extremity Exam: normal inspection, normal range of motion Skin Exam: normal color, warm, dry Final Diagnosis/Problem List - Final Discharge Diagnosis/Problem (1) Dehydration Current Visit: Yes Status: Resolved Code(s): E86.0 - DEHYDRATION (2) General weakness Current Visit: Yes Status: Acute Code(s): R53.1 - WEAKNESS (3) Hypertension Current Visit: Yes Status: Chronic Code(s): I10 - ESSENTIAL (PRIMARY) HYPERTENSION (4) Uncontrolled hypertension Current Visit: Yes Status: Acute Code(s): I10 - ESSENTIAL (PRIMARY) HYPERTENSION (5) Urinary tract infection Current Visit: Yes Status: Acute Assessment & Plan: Chief Complaint Diagnosis dehydration, HBP Allergies Allergy/AdvReac Type Severity Reaction Status Date / Time amoxicillin [Amoxicillin] Allergy Severe Swelling Verified 12/11/20 19:11 of Tongue and Lips Penicillins Allergy Severe Swelling Verified 12/11/20 19:11 of Tongue and Lips Vital Signs (Last 24 hours) Temp Pulse Resp BP Pulse Ox 12/13/20 06:56 98.4 F 59 L 16 169/46 98 12/13/20 05:08 63 22 179/70 12/13/20 04:00 98.4 F 55 L 18 177/73 98 12/13/20 00:00 98.6 F 66 19 144/66 96 12/12/20 20:25 95 12/12/20 19:49 98.1 F 75 18 143/65 97 12/12/20 16:00 98.5 F 74 16 166/73 96 12/12/20 12:00 98.0 F 72 18 190/94 96 Home Medications Medication Instructions Recorded Confirmed Last Taken Type HydrALAzine HCL 25 MG TAB 25 mg PO TID 12/11/20 12/11/20 12/10/20 History [Apresoline 25 MG TABLET] Aspirin EC 81 mg [Ecotrin 81 81 mg PO DAILY #30 tablet.ec 12/13/20 Unknown Rx mg] Clonidine HCl 0.1 mg [Catapres 0.1 mg PO Q12H PRN PRN #10 tablet 12/13/20 12/11/20 12/10/20 Rx 0.1 MG] Levofloxacin [Levaquin] 500 mg PO DAILY 7 Days #7 12/13/20 12/11/20 12/10/20 Rx Current Medications Generic Name Dose Route Start Last Admin Trade Name Freq PRN Reason Stop Dose Admin Acetaminophen 650 mg 12/11/20 23:20 12/12/20 08:24 Tylenol 325 Mg PO 01/10/21 23:19 650 mg Q4H PRN PRN Administration PAIN AND/OR FEVER Aspirin 81 mg 12/12/20 10:00 12/13/20 09:04 Ecotrin 81 Mg PO 01/11/21 09:59 81 mg DAILY BLANCA Administration Clonidine 0.1 mg 12/12/20 07:17 Catapres 0.1 Mg PO 01/11/21 07:16 Q12H PRN PRN HYPERTENSION Famotidine 20 mg 12/12/20 10:00 12/13/20 09:05 Pepcid 20 Mg PO 01/11/21 09:59 20 mg BID BLANCA Administration Hydralazine HCl 25 mg 12/12/20 07:09 12/13/20 04:29 Apresoline 25 Mg Tablet PO 01/11/21 07:14 25 mg Q6H PRN Administration hypertension Hydralazine HCl 25 mg 12/12/20 10:00 12/13/20 09:04 Apresoline 25 Mg Tablet PO 01/11/21 09:59 25 mg TID BLANCA Administration Dextrose/Sodium Chloride 1,000 mls @ 75 mls/hr 12/11/20 23:20 12/13/20 04:31 Dextrose 5% -0.45 Nacl 1000 Ml IV 01/10/21 23:19 75 mls/hr .[id number] BLANCA Administration Levofloxacin/Dextrose 500 mg in 100 mls @ 100 mls/hr 12/12/20 10:00 12/13/20 09:04 Levofloxacin 500mg/100ml D5w IV 01/11/21 09:59 100 mls/hr Q24H10 BLANCA Administration Metoprolol Tartrate 25 mg 12/12/20 10:00 12/13/20 09:05 Lopressor 25mg Tab PO 01/11/21 09:59 25 mg BID BLANCA Administration Ondansetron HCl 4 mg 12/11/20 23:20 12/12/20 02:44 Zofran 4 Mg/2 Ml Vial IV 01/10/21 23:19 4 mg Q6H PRN PRN Administration NAUSEA/VOMITING Pantoprazole Sodium 40 mg 12/12/20 10:00 12/13/20 09:04 Protonix 40mg Tablet PO 01/11/21 09:59 40 mg DAILY BLANCA Administration Tamsulosin HCl 0.4 mg 12/12/20 10:00 12/13/20 09:05 Flomax 0.4 Mg PO 01/11/21 09:59 0.4 mg DAILY BLANCA Administration Discontinued Medications Generic Name Dose Route Start Last Admin Trade Name Freq PRN Reason Stop Dose Admin Albuterol Sulfate 2.5 mg 12/11/20 23:20 Proventil 2.5 Mg/3 Ml Neb IH 01/10/21 23:19 Q2H PRN PRN SHORTNESS OF BREATH/WHEEZING Famotidine 20 mg 12/11/20 23:20 12/12/20 01:18 Pepcid 20 Mg Vial IV 01/10/21 23:19 20 mg Q12HT BLANCA Administration Hydralazine HCl 10 mg 12/11/20 21:06 12/11/20 21:10 Apresoline 20 Mg/Ml Inj IV 12/11/20 21:07 10 mg STAT ONE Administration Hydralazine HCl Confirm 12/11/20 21:09 Apresoline 20 Mg/Ml Inj Administered 12/11/20 21:10 Dose 20 mg .ROUTE .STK-MED ONE Hydralazine HCl 10 mg 12/11/20 23:20 Apresoline 20 Mg/Ml Inj IV 01/10/21 23:19 Q4H PRN PRN HYPERTENSION Potassium Chloride/Sodium Chloride 1,000 mls @ 75 mls/hr 12/11/20 21:45 12/11/20 21:46 Sodium Chloride 0.9% W/ 20 Meq Kcl/Liter IV 01/10/21 21:44 75 mls/hr .[id number] BLANCA Administration Sodium Chloride Confirm 12/11/20 21:41 Sodium Chloride 0.9% 1000 Ml Administered 12/11/20 21:42 Dose 1,000 mls @ ud .ROUTE .STK-MED ONE Potassium Chloride Confirm 12/11/20 21:43 Potassium Chloride 20 Meq In Water 100ml Administered 12/11/20 21:44 Dose 100 mls @ ud IV .STK-MED ONE Ceftriaxone Sodium/Dextrose Confirm 12/11/20 22:17 Rocephin 1 Gm-D5w 50 Ml Bag Administered 12/11/20 22:18 Dose 1 g in 50 mls @ ud IV .STK-MED ONE Potassium Chloride/Sodium Chloride Confirm 12/11/20 21:44 Sodium Chloride 0.9% W/ 20 Meq Kcl/Liter Administered 12/11/20 21:45 Dose 1,000 mls @ ud IV .STK-MED ONE Intake & Output (Last 24 hours) 12/10/20 12/11/20 12/12/20 12/13/20 11:59 11:59 11:59 11:59 Intake Total 120 2484 Output Total 500 Balance 120 1983 Weight 127 kg 60.3 kg Microbiology Results (Last 24 hours) 12/11/20 22:05 Urine, Void Urine Culture - Final <10K NORMAL SKIN RENEE PROBABLE SKIN CONTAMINANT Laboratory Results (Last 24 hours) 12/13/20 12/13/20 12/12/20 05:20 05:20 22:14 WBC 7.4 RBC 3.92 L Hgb 12.5 Hct 39.0 MCV 99.5 MCH 31.9 MCHC 32.1 RDW 15.5 H Plt Count 245 MPV 10.1 Gran % 68.2 H Eos # (Auto) 0.10 Absolute Lymphs (auto) 1.35 Absolute Monos (auto) 0.90 Lymphocytes % 18.1 L Monocytes % 12.1 H Eosinophils % 1.3 Basophils % 0.3 Absolute Granulocytes 5.07 Basophils # 0.02 Sodium 136 L Potassium 3.4 L Chloride 105 Carbon Dioxide 23 Anion Gap 12.0 BUN 18 H Creatinine 1.08 H Estimated GFR 51.4 Glucose 118 H POC Glucometer 116 H Hemoglobin A1c Calcium 8.8 Total Bilirubin 0.40 AST 30 ALT 21 Alkaline Phosphatase 59 Troponin I Serum Total Protein 5.9 L Albumin 3.4 L 12/12/20 12/12/20 15:30 12:42 WBC RBC Hgb Hct MCV MCH MCHC RDW Plt Count MPV Gran % Eos # (Auto) Absolute Lymphs (auto) Absolute Monos (auto) Lymphocytes % Monocytes % Eosinophils % Basophils % Absolute Granulocytes Basophils # Sodium Potassium Chloride Carbon Dioxide Anion Gap BUN Creatinine Estimated GFR Glucose POC Glucometer Hemoglobin A1c 4.93 Calcium Total Bilirubin AST ALT Alkaline Phosphatase Troponin I 0.047 H* Serum Total Protein Albumin Orders (Last 24 hours) Category Date Time Status CBC W DIFF AM.LAB Lab 12/13/20 05:20 Completed CMP AM.LAB Lab 12/13/20 05:20 Completed HEMOGLOBIN A1C Urgent Lab 12/12/20 15:30 Completed POCT GLUCOSE Stat Lab 12/12/20 22:14 Completed TROPONIN Routine Lab 12/12/20 12:42 Completed Aspirin EC 81 mg [Ecotrin 81 mg] Med 12/12/20 10:00 Active 81 mg PO DAILY Famotidine 20 mg [Pepcid 20 MG] Med 12/12/20 10:00 Active 20 mg PO BID HydrALAzine HCL 25 MG TAB [Apresoline 25 MG TABLET Med 12/12/20 10:00 Active *] 25 mg PO TID Levofloxacin [Levofloxacin 500MG/100ML D5W] Med 12/12/20 10:00 Active 500 mg in 100 ml IV Q24H10 Metoprolol Tartrate 25 mg [Lopressor 25MG Tab] Med 12/12/20 10:00 Active 25 mg PO BID PANTOPRAZOLE 40 mg Tablet [Protonix 40MG Tablet] Med 12/12/20 10:00 Active 40 mg PO DAILY Tamsulosin HCl 0.4 mg [Flomax 0.4 MG] Med 12/12/20 10:00 Active 0.4 mg PO DAILY Patient Care Notes (Last 24 hours) 12/13/20 05:09 Nursing Note by Afshan Vences Rechecked patients B/P 30min post Apresoline. 179/70 HR63. Blood pressure is coming down. Will continue to monitor. Initialized on 12/13/20 05:09 - END OF NOTE 12/13/20 04:34 Nursing Note by Afshan Vences Rechecked patients blood pressure to verify. Got 198/78-HR58. PRN Apresoline given as ordered for >180 SYSTOLIC Initialized on 12/13/20 04:34 - END OF NOTE 12/12/20 18:17 Nursing Note by Iman Shafer will accept pt they are expecting her on 12/13/20 Initialized on 12/12/20 18:17 - END OF NOTE 12/12/20 14:41 Case Management Note by Tiki Pettit PATIENT AGREEABLE TO GO TO [facility] IF THEY ARE ABLE TO ACCEPT HER Initialized on 12/12/20 14:41 - END OF NOTE 12/12/20 14:34 Case Management Note by Tiki Pettit S/W [facility]- THEY WILL NOT HAVE A BED UNTIL TUESDAY. PATIENT IN OBS, NOT MTG IN PATIENT CRITERIA - LIKELY DC TOMORROW. THEY WOULD LIKE TO GO AHEAD AND HAVE REFERRAL SENT TO [facility] IN [facility] UNTIL THEY ARE ABLE TO GET HER CLOSER TO THEM. REFERRAL FAXED AT THIS TIME. Initialized on 12/12/20 14:34 - END OF NOTE 12/12/20 14:27 Case Management Note by Tiki PettitNIFER PATIENT'S HOME HEALTHCARE NURSE NOTIFIED THIS NURSE THAT FAMILY IS LOOKING INTO SNF PLACEMENT NEAR THEM. S/W [id number] DAVIAN-SHE WOULD LIKE PATIENT TO GO TO [facility] IN [place]. EVAN NOTIFIED. SHE WILL SEND REF ERRAL. Initialized on 12/12/20 14:27 - END OF NOTE 12/12/20 13:46 Nursing Note by Natalie Aguilar called critical troponin to Dr Carson nurse Initialized on 12/12/20 13:46 - END OF NOTE 12/12/20 13:15 Case Management Note by Tiki Pettit S/W NURY AT [facility]. SHE NOTIFIED OF CONCERNS LISTED IN PREVIOUS NOTE. SHE WILL NOTIFY PATIENT'S NURSE. Initialized on 12/12/20 13:15 - END OF NOTE 12/12/20 12:32 Case Management Note by Tiki Pettit PATIENT REPORTS SHE HAS A FAMILY MEMBER THAT WILL DO HER GROCERY SHOPPING BUT SHE DOES NOT LIKE TO BOTHER HER SO SHE HAS BEEN EATING LESS THAN SHE SHOULD. PATIENT WAS ENCOURAGED TO LET THIS FAMILY MEMBER KNOW WHEN SHE NEEDS FOOD RATHER THAN GOING WITHOUT- SHE VERIFIED UNDERSTANDING. PATIENT ALSO GIVEN INFO ON MEALS ON WHEELS WHICH SHE WOULD QUALIFY FOR AND NOTIFIED THAT [employer]. SHE VERIFIED UNDERSTANDING OF INFORMATION GIVEN. PATIENT REPORTS SHE NEEDS NEW CLOTHING SHE HAS LOST WEIGHT AND HER CLOTHES NO LONGER FIT. PATIENT STATES SHE HAS NOTIFIED HER FAMILY IN [facility] BUT DOESN'T WANT TO BE A BOTHER. ENCOURAGED AGAIN TO LET HER FAMILY KNOW HER NEEDS. SHE REPORTS THEY ARE WORKING ON GETTING HER IN TO [facility] ASSISTED LIVING IN [facility] NEAR THEM. PATIENT USES [employer] FOR TRANSPORTATION. SHE WAS GIVEN INFORMATION ON [facility]SPORTATION WELL. WILL TRY TO CONTINUE TO REACH OUT TO HHC TO NOTIFY THEM OF ABOVE ISSUES SO THEY ARE AWARE Initialized on 12/12/20 12:32 - END OF NOTE 12/12/20 12:24 Case Management Note by Tiki Pettit PATIENT HAS HHC WITH [facility]. ATTEMPTED MULTIPLE TIMES TO NOTIFY THEM PATIENT IS HERE. THEY WILL NEED NOTIFIED WHEN PATIENT DISCHARGES [facility] AT [phone]. THEY WILL NEED FAXED THE DC INSTRUCTIONS, DC MED LIST, AND DC SUMMARY (IF AVAILABLE) TO [phone] Initialized on 12/12/20 12:24 - END OF NOTE Code(s): N39.0 - URINARY TRACT INFECTION, SITE NOT SPECIFIED - Discharge Disposition: Skilled Care @ [facility] Condition: Stable Prescriptions: New Aspirin EC 81 mg [Ecotrin 81 mg] 81 mg PO DAILY #30 tablet.ec Continue Tamsulosin HCl 0.4 mg [Flomax 0.4 MG] 0.4 mg PO DAILY Omeprazole 20 MG [Prilosec 20 mg] 20 mg PO DAILY Hamel-3 Fatty Acids/Fish Oil [Fish Oil 1,000 mg Capsule] 1 each PO TID Metoprolol Tartrate 25 mg [Lopressor 25MG Tab] 25 mg PO BID #60 tab Famotidine 20 mg [Pepcid 20 MG] 20 mg PO BID Aspirin EC 81 mg [Ecotrin 81 mg] 81 mg PO DAILY tablet.ec HydrALAzine HCL 25 MG TAB [Apresoline 25 MG TABLET] 25 mg PO TID Levofloxacin [Levaquin] 500 mg PO DAILY 7 Days #7 Clonidine HCl 0.1 mg [Catapres 0.1 MG] 0.1 mg PO Q12H PRN PRN #10 tablet PRN Reason: Hypertension Instructions: High Blood Pressure (DC) Forms: Discharge Instructions, Transfer Record [facility]
== END 2020-12-13 12:55 ==
LOC: ED 19:10 → ICU 23:13
PROVIDERS: ADMIT Family Medicine; ATTEND Family Medicine
DX: E86.0 Dehydration (principal); R53.1 Weakness; I10 Essential (primary) hypertension; R42 Dizziness and giddiness; N39.0 Urinary tract infection, site not specified; B96.5 Pseudomonas (aeruginosa) (mallei) (pseudomallei) as the cause of diseases classified elsewhere; Z79.899 Other long term (current) drug therapy; E87.1 Hypo-osmolality and hyponatremia; Z20.828 Contact with and (suspected) exposure to other viral communicable diseases
CPT/HCPCS: 36000; 36415; 70450; 71045; 80053; 81001; 82947; 83036; 83735; 83880; 84484; 85025; 87086; 93005; 93268; 94760; 96374; 99285; 99291; G0378; U0003; J0360; J0696; J1956; J2405; J3480; A9270-GY